=== PATIENT | female | born 1945 | race Asian ===

== ENCOUNTER 2018-05-19 11:34 | Emergency (ER) | payer OTHER, MEDICARE ==
[2018-05-19 12:17] VITALS: BP 140/75; PULSE 77; TEMP 97.9; BMI 27.3
--- NOTE | 2018-05-19 14:08 | PDOC ---
History of Present Illness - General Chief Complaint: Psychiatric Stated Complaint: EMOTIONAL DISTRESS Time Seen by Provider: 05/19/18 12:40 History Source: Patient Exam Limitations: No Limitations - History of Present Illness Initial Comments: 05/19/18 14:01 22-year-old female presents to ED with complaints of difficulty sleeping last night, mild headache this morning relief with ibuprofen and feeling of fearfulness secondary to recent and ongoing conflict with neighbor. Patient states has a male neighbor its approximate 48 years old who is loud, uses vulgar language and "has an intimidating appearance." Patient states try talking to the patient just recently on Thursday when he became defensive and denying patient's request. Coursing since he states does not and stated the patient is likely having hallucinations. Patient states is chronic pain for anxiety but denies psychiatric history. Patient states went to management in the building who recommended either ignore the neighbor or to record the neighbor so that they may address the issue. Patient currently is not fearful for her life and has not reported this to the police. Patient has other complaints at this time Timing/Duration: getting worse Severity: mild Associated Symptoms: reports: denies symptoms, headaches (resolved) Past History - Travel Traveled outside of the country in the last 30 days: No - Past Medical History Allergies/Adverse Reactions: Allergies Allergy/AdvReac Type Severity Reaction Status Date / Time No Known Allergies Allergy Verified 05/19/18 12:12 Home Medications: Ambulatory Orders Clonazepam 1 mg PO TID 05/19/18 Levothyroxine [Synthroid -] 75 mcg PO DAILY 05/19/18 COPD: No Thyroid Disease: Yes - Immunization History Immunization Up to Date: Yes - Suicide/Smoking/Psychosocial Hx Smoking History: Never smoked Hx Alcohol Use: No Drug/Substance Use Hx: No Patient Lives Alone: Yes Lives with/in: lives alone Review of Systems - Review of Systems Able to Perform ROS?: No Constitutional: No: Symptoms Reported HEENTM: No: Symptoms Reported Respiratory: No: Symptoms reported Cardiac (ROS): No: Symptoms Reported ABD/GI: No: Symptoms Reported : No: Symptoms Reported Musculoskeletal: No: Symptoms Reported Neurological: Yes: Headache Psychiatric: Yes: Anxiety, Stressors, Sleep Pattern Change Endocrine: No: Symptoms Reported Hematologic/Lymphatic: No: Symptoms Reported *Physical Exam - Vital Signs Last Vital Signs Temp Pulse Resp BP Pulse Ox 97.9 F 77 18 140/75 96 05/19/18 12:13 05/19/18 12:13 05/19/18 12:13 05/19/18 12:13 05/19/18 12:13 - Physical Exam General Appearance: Yes: Nourished, Appropriately Dressed. No: Apparent Distress HEENT: positive: EOMI, IRVING. negative: Pale Conjunctivae Neck: positive: Normal Thyroid, Supple Extremity: positive: Normal Inspection, Normal Range of Motion Integumentary: positive: Normal Color, Warm, Moist Neurologic: positive: Normal Mood/Affect (calm, + eye contact), Motor Strength 5 /5 (ambulatory) Medical Decision Making - Medical Decision Making 05/19/18 14:05 Patient will complaints of insomnia and anxiety secondary to a neighbor who she has resided nex to for the past 4 years. Patient states it confronted him to past week when he became argumentative and defensive. Patient went to management who recommended either to ignore the neighbor or to record the neighbor so that they may address the loud aggressive and vulgar behavior. She has no other complaints this time. I also recommended patient go to the nearest precinct to be advised of other solutions for the problem. *DC/Admit/Observation/Transfer Diagnosis at time of Disposition: Anxiety - Discharge Dispostion Disposition: HOME Condition at time of disposition: Good - Referrals - Patient Instructions Printed Discharge Instructions: DI for Anxiety -- Adult Additional Instructions: Please consider going to the nearest precinct for other solutions and advice. Understand if any given time if you do not feel safe or fearful for your life, to call 911. Otherwise also consider recording the neighbor and then notifying management - Post Discharge Activity
== END 2018-05-19 14:15 | disposition home or self-care (01) ==
LOC: JER 11:34
DX: F41.9 Anxiety disorder, unspecified (principal); E07.9 Disorder of thyroid, unspecified
CPT/HCPCS: 99281-25

== ENCOUNTER 2018-07-23 05:01 | Day surgery (SDC) | payer OTHER, MEDICARE ==
[2018-07-22 15:34] VITALS: BMI 27.1
[2018-07-23] MEDS ORDERED: PROPOFOL 20 ML ONE ×2 (11:54)
[2018-07-23] MEDS ORDERED: LIDOCAINE HCL/PF 2% SDV 5ML VIAL ONE (11:54)
[2018-07-23] MEDS ORDERED: ceFAZolin SODIUM 1 GM VIAL ONE (11:54)
[2018-07-23] MEDS ORDERED: MIDAZOLAM HCL 2 MG/2 ML SINGLE DOSE VIAL ONE (11:54)
[2018-07-23] MEDS ORDERED: LIDOCAINE HCL 1%, 10 MG/ML (50 mL VIAL) IJ ONE ×2 (12:20)
[2018-07-23] MEDS ORDERED: KETOROLAC TROMETHAMINE 30 MG/1 ML VIAL ONE (13:00)
--- NOTE | 2018-07-23 13:13 | HP ---
Admitting History and Physical - Primary Care Physician PCP: Augie Cobos ([employer]) - Admission Chief Complaint: Right bunion with hallux valgus History of Present Illness: Condition prevents patient from wearing shoe gear and has requested surgery - Smoking History Smoking history: Never smoked Have you smoked in the past 12 months: No - Alcohol/Substance Use Hx Alcohol Use: Yes (1 beer with lunch every day) Home Medications - Allergies Allergies/Adverse Reactions: Allergies Allergy/AdvReac Type Severity Reaction Status Date / Time No Known Allergies Allergy Verified 07/23/18 09:33 - Home Medications Home Medications: Ambulatory Orders Clonazepam 1 mg PO TID 05/19/18 Cholecalciferol (Vitamin D3) [Vitamin D3 -] 1,000 unit PO DAILY 07/22/18 Levothyroxine [Synthroid -] 88 mcg PO DAILY 07/22/18 Lovastatin 20 mg PO DAILY 07/22/18 Olmesartan Medoxomil [Benicar (Nf)] 40 mg PO DAILY 07/22/18 Physical Examination Vital Signs: Vital Signs Temperature 98.2 F 07/23/18 09:22 Pulse Rate 85 07/23/18 09:22 Respiratory Rate 16 07/23/18 09:22 Blood Pressure 136/80 07/23/18 09:22 O2 Sat by Pulse Oximetry (%) 98 07/23/18 09:22 Musculoskeletal: Yes: Other (Right foot 35 degress abduction of hallux with large bunion) Assessment/Plan Assessment Right bunion with hallux valgus. Plan I originally planned to perform right Lara, but in holding the patient requested that I not remove her joint, so we decided to do modified Borrego type operation instead.
[2018-07-23 14:38] VITALS: PULSE 83
[2018-07-23] MEDS ORDERED: IBUPROFEN 800 MG/8 ML IJ IVPB PRN (15:18)
[2018-07-23] MEDS ORDERED: ONDANSETRON 4 MG/2 ML VIAL IVPUSH PRN (15:18)
[2018-07-23] MEDS ORDERED: oxyCODONE HCL 5 MG TABLET PO PRN (15:18)
[2018-07-23 15:25] VITALS: BP 125/70; TEMP 98.3
[2018-07-23] MEDS ORDERED: LACTATED RINGERS SOLUTION 1,000 ML IV SCH (15:30)
--- NOTE | 2018-07-24 07:55 | OP ---
DATE OF OPERATION: 07/23/2018 SURGEON: Augie Cobos DPM PREOPERATIVE DIAGNOSIS: Right bunion with hallux valgus. POSTOPERATIVE DIAGNOSIS: Right bunion with hallux valgus. PROCEDURE: Right modified Borrego simple bunionectomy. DESCRIPTION OF PROCEDURE: Under fractional anesthesia and a surgical scrub with Betadine scrub and solution x2, the patient was draped using sterile technique. After 3 minutes of right limb elevation, a right ankle tourniquet was inflated to 250 mmHg pressure for 43 minutes. Inspection of the right foot showed a 35-degree hallux valgus with a very large medial eminence on the 1st metatarsal head. Using a No. 15 surgical blade, a linear longitudinal incision was made on the dorsal aspect of the right foot over the 1st metatarsophalangeal joint. The incision was deepened through fascia and retracted. The 1st interspace was bluntly dissected, and the adductor tendinous attachments were dissected from the fibular sesamoid and the lateral joint capsule. Attention was directed to the dorsal joint capsule of the 1st metatarsophalangeal joint. A linear longitudinal incision was made releasing the medial extensor kilgore ligament, and then, a longitudinal incision was made in the joint capsule. Medial and lateral sesamoidal ligaments were cut, and then, the 1st metatarsal head was delivered into the wound. It was inspected and found to have significant joint cartilaginous damage with fissuring and missing areas of cartilage. However, the patient did not consent to a procedure. So, we will stick with the simple bunionectomy. Using the bone saw, the medial eminence of the 1st metatarsal head and a portion of the medial proximal phalangeal condyle was resected and then rasped smooth. The wound was irrigated copiously with sterile saline, and then, the joint was reapproximated and sutured with 2-0 Vicryl being used for the joint capsule and extensor kilgore apparatus and 3-0 Vicryl being used for fascia closure, and then, 4-0 Vicryl used for subcuticular closure with Steri-Strips. The ankle tourniquet was deflated after 43 minutes of inflation. Vascular perfusion immediately returned to all 5 digits, so, a dry sterile dressing was applied to the right foot. The patient tolerated the surgical procedure well and left the operating room stable, alert, awake, and in no pain. RICKI BILLINGSLEY/[id number]
== END 2018-07-23 15:10 | disposition home or self-care (01) ==
LOC: JASU-SURG 05:01
PROVIDERS: ATTEND Podiatrist Foot Surgery
PROC: 0QBQ0ZZ Excision of Right Toe Phalanx, Open Approach (ICD-10-PCS; principal; 2018-07-23 10:30)
DX: M20.11 Hallux valgus (acquired), right foot (principal); M21.611 Bunion of right foot

== ENCOUNTER 2018-11-26 09:13 | Observation (INO) | payer OTHER, MEDICARE ==
[2018-11-26 09:34] VITALS: BMI 27.9
--- NOTE | 2018-11-26 10:50 | PDOC ---
History of Present Illness - General Chief Complaint: Blood Pressure Problem Stated Complaint: HTN,DIZZINESS Time Seen by Provider: 11/26/18 09:30 - History of Present Illness Initial Comments: 73yo F with PMH of HTN, HLD, hypothyroidism, anxiety complaining of dizziness, headache, shortness of breath, and chest pain. Patient states that she usually takes clonipin everyday for anxiety for over five years since her . She has not taken this medicine for three days since she ran out. Patient has an appointment to see her physician, Dr. Smart, today, but feeling like she was going to pass out prompted her to call 06-22. As patient was in the lobby with EMS, she began to feel chest pressure which she describes it as a 'discomfort' and 'pressure.' It last for about about five minutes and was located on the left side of her chest, non-radiating. No hemoptysis, no recent surgical history, no recent immobilization, no hormone use, no history of DVT or PE. It lasted for Patient is a poor historian. No fevers or chills. Past History - Past Medical History Allergies/Adverse Reactions: Allergies Allergy/AdvReac Type Severity Reaction Status Date / Time No Known Allergies Allergy Verified 07/23/18 09:33 Home Medications: Ambulatory Orders Clonazepam 1 mg PO TID 05/19/18 Cholecalciferol (Vitamin D3) [Vitamin D3 -] 1,000 unit PO DAILY 07/22/18 Levothyroxine [Synthroid -] 88 mcg PO DAILY 07/22/18 Lovastatin 20 mg PO DAILY 07/22/18 Olmesartan Medoxomil [Benicar (Nf)] 40 mg PO DAILY 07/22/18 COPD: No HTN: Yes Hypercholesterolemia: Yes Thyroid Disease: Yes - Immunization History Immunization Up to Date: Yes - Suicide/Smoking/Psychosocial Hx Smoking History: Never smoked Have you smoked in the past 12 months: No Hx Alcohol Use: No Drug/Substance Use Hx: No Substance Use Type: None Hx Substance Use Treatment: No Review of Systems - Review of Systems Comments:: Constitutional: no fever, +diaphoresis HEENT: no throat pain, no dysphagia Cardiovascular: +chest pain, no palpitations Respiratory: no cough, +shortness of breath Gastrointestinal: no abdominal pain, no nausea, no vomiting Genitourinary: no dysuria, no frequency Musculoskeletal: no myalgia, no arthralgia Skin: no rash, no itching Neurologic: +headache, +lightheaded *Physical Exam - Vital Signs Last Vital Signs Temp Pulse Resp BP Pulse Ox 99.1 F 90 20 171/98 H 98 11/26/18 09:31 11/26/18 09:31 11/26/18 09:31 11/26/18 09:31 11/26/18 09:31 - Physical Exam Comments: General: Awake, alert, and fully oriented, in no acute distress Head: No signs of trauma Eyes: EOMI, sclera anicteric ENT: Moist mucus membranes Neck: Normal ROM, supple Lungs: Lungs clear, Normal breath sounds Cardio: Regular rhythm, S1 and S2 present Abdomen: Soft, nontender. No guarding, no rebound, no masses Extremities: Normal range of motion, Distal pulses present SKIN: Warm, Dry, normal turgor Neurologic: Cranial nerves II through XII grossly intact. Normal speech Moderate Sedation - Procedure Monitoring Vital Signs: Procedure Monitoring Vital Signs Temperature 99.1 F 11/26/18 09:31 Pulse Rate 90 11/26/18 09:31 Respiratory Rate 20 11/26/18 09:31 Blood Pressure 171/98 H 11/26/18 09:31 O2 Sat by Pulse Oximetry (%) 98 11/26/18 09:31 ED Treatment Course - LABORATORY CBC & Chemistry Diagram: 11/26/18 10:40 11/26/18 10:40 - RADIOLOGY Radiology Studies Ordered: Category Date Time Status CHEST X-RAY PORTABLE* [RAD] Stat Radiology 11/26/18 10:30 Ordered Medical Decision Making - Medical Decision Making 73yo F with PMH of HTN, HLD, hypothyroidism, anxiety complaining of dizziness, headache, shortness of breath, and chest pain. DDX includes but not limited to ACS, hypertensive emergency vs urgency, PE, arrhythmia, pneumonia Vitals notable for hypertension in systolic 170s. Patient says she took her blood pressure medicine this morning. No PE risk factors, low suspicion for PE While presentation is consistent with benzodiazepene withdrawal, patient's chest pain concerning for ACS vs. hypertensive emergency History also shows a pre-syncopal picture. Patient feels better after receiving home does of clonipin. EKG: rate 85, QTc 430. Sinus rhythm with short IA, no ST d/e CXR without acute pathology First Tpn negative. Discussed case with Dr. Smart who accepted patient for telemetry observation. 11/26/18 13:09 *DC/Admit/Observation/Transfer Diagnosis at time of Disposition: Chest pain, Pre-syncope, Anxiety - Discharge Dispostion Condition at time of disposition: Guarded Decision to Admit order: Yes - Referrals - Patient Instructions - Post Discharge Activity
[2018-11-26 11:07] LABS: BASO % 0.2 % (0-2.0); HEMATOCRIT 36.9 % (32.4-45.2); HEMOGLOBIN 12.8 GM/dL (10.7-15.3); LYMPH % 28.9 % (8-40); MCH 31.2 pg (25.7-33.7); MCHC 34.7 g/dl (32.0-36.0); MEAN CELL VOLUME 89.7 fl (80-96); MEAN PLT VOLUME 9.2 fl (7.5-11.1); MONO % 7.1 % (3.8-10.2); NEUT % 63.8 % (42.8-82.8); PLATELET COUNT 218 K/MM3 (134-434); RBC 4.11 M/mm3 (3.60-5.2); RDW 13.6 % (11.6-15.6); WHITE BLOOD COUNT 6.9 K/mm3 (4.0-10.0)
[2018-11-26] MEDS ORDERED: clonazePAM 0.5 MG TABLET PO ONE (11:22)
[2018-11-26] MEDS ORDERED: clonazePAM 0.5 MG TABLET ONE (11:27)
[2018-11-26 11:48] LABS: ALBUMIN 3.7 g/dl (3.4-5.0); ALK PHOS 77 U/L (45-117); ANION GAP 7 MMOL/L (8-16); BILIRUBIN,TOTAL 0.6 mg/dL (0.2-1); BLOOD UREA NITROGEN 15 mg/dL (7-18); CALCIUM 9.2 mg/dL (8.5-10.1); CHLORIDE 106 mmol/L (98-107); CO2 25 mmol/L (21-32); GLUCOSE,RANDOM 106 mg/dL (74-106); POTASSIUM 4.3 mmol/L (3.5-5.1); SGOT/AST 23 U/L (15-37); SGPT/ALT 18 U/L (13-61); SODIUM 139 mmol/L (136-145); TOT PROT 7.5 g/dl (6.4-8.2)
--- NOTE | 2018-11-26 12:20 | PDOC ---
Attending Attestation - HPI HPI: 11/26/18 12:56 The patient is a 73 year old female, with a significant past medical history of HTN, HLD, hypothyroidism, and anxiety who presents to the emergency department via EMS complaining of dizziness, headache, shortness of breath, and chest pain. The patient notes she is on clonipin for her anxiety but has not taken them for the past 3 days because she ran out. The patient states she has an appointment with Dr. Smart, today but she felt like passing out, which prompted her arrival to the ED. Patient notes taking aspirin, with relief. Patient notes once she arrived to the ED, she felt non-radiating chest pressure that lasted for about five minutes. The patient denies fever, chills, nausea, vomit, diarrhea and constipation. The patient denies dysuria, frequency, urgency and hematuria. Allergies: NKDA Past surgical history: None reported Social history: None reported <Og Sim - Last Filed: 11/26/18 14:15> - Resident Resident Name: Roslyn Vaughn - ED Attending Attestation I have performed the following: I have examined & evaluated the patient, The case was reviewed & discussed with the resident, I agree w/resident's findings & plan, Exceptions are as noted - Physicial Exam PE: 11/26/18 13:51 awake alert lungs clear bilaterally heart rrr no mrg abd soft nt nd. ext wwp no edema. no calf tenderness. skin warm and dry. 2 + dp/ pt pulses. nuero alert oriented x 3. - Medical Decision Making 11/26/18 13:53 differential 11/26/18 14:05 73 yo F with h/o HTN anxiety on klonopin here today c/o feeling lightheaded, with associated cp ad sob. pt states off her klonopin for 3 days, this am suddently felt lightheaded had chest tightness, did have sob. also felt dizzy. no palpitations. took asa and called ambulance. after arrival to ed pain has resolved. no f/c no runny nose. no cough. has not been sleeping recently. no leg swelling. pt did see a oven loader 6 mo ago , unsure of name, did echo and dopplers legs were reportedly negative. mom with ME in her 80's. not a smoker. no other complaints. normal exam. no edema. no calf tenderes. normal cardiac and lung exam. differential withdrawal from benzos, dysrhtymia, acs, infeciton chf. plan labs ekg cxr. lakeisha give klonopin here. asa. pt will require admission due to age, and risk factors for acs r/o. initial labs unremarkable. <Lisy Otoole - Last Filed: 11/26/18 16:50> Heart Score/ECG Review #1 General ECG Interpretation: Sinus Rhythm, Normal Rate (85), Normal Intervals, No acute ischemic changes <Lisy Otoole - Last Filed: 11/26/18 16:50> Attestations - Attestations 11/26/18 12:57 Documentation prepared by Og Sim, acting as biomedical engineering aide for Lisy Otoole MD, MD <Og Sim - Last Filed: 11/26/18 14:15>
--- NOTE | 2018-11-26 12:46 | EKG ---
Test Reason : Blood Pressure : / mmHG Vent. Rate : 085 BPM Atrial Rate : 085 BPM P-R Int : 106 ms QRS Dur : 080 ms QT Int : 362 ms P-R-T Axes : 060 020 037 degrees QTc Int : 430 ms SINUS RHYTHM WITH SHORT NV OTHERWISE NORMAL ECG NO PREVIOUS ECGS AVAILABLE Confirmed by EDUARDO BRUNSON, DELMER ([id number]) on 11/26/2018 12:45:55 PM Referred By: Confirmed By:DELMER CLARK MD
--- NOTE | 2018-11-26 20:40 | PN ---
Progress Note, Physician - Current Medication List Current Medications: Active Medications Atorvastatin Calcium (Lipitor -) 10 mg PO HS CINDY Cholecalciferol (Vitamin D3 -) 1,000 unit PO DAILY CINDY Clonazepam (Klonopin -) 1 mg PO TID CINDY Levothyroxine Sodium (Synthroid -) 88 mcg PO ACBK CINDY Losartan Potassium (Cozaar -) 25 mg PO DAILY CINDY - Objective Vital Signs: Vital Signs Temperature 98.2 F 11/26/18 18:00 Pulse Rate 85 11/26/18 18:00 Respiratory Rate 18 11/26/18 18:00 Blood Pressure 169/99 11/26/18 18:00 O2 Sat by Pulse Oximetry (%) 95 11/26/18 17:17 Labs: CBC, BMP 11/26/18 10:40 11/26/18 10:40
[2018-11-26] MEDS: ATORVASTATIN CA 10 MG TABLET (FP) PO SCH (21:06)
[2018-11-26] MEDS: clonazePAM 0.5 MG TABLET PO SCH (21:06)
[2018-11-26] MEDS ORDERED: PATIENT'S OWN MEDICATION (NON-FORMULARY) (Clonazepam [Clonazepam] 1 MG) PO SCH (22:00)
--- NOTE | 2018-11-26 23:45 | HP ---
Admitting History and Physical - Primary Care Physician PCP: Keegan Smart - Admission Chief Complaint: CP. SOB. Lightheadedness History of Present Illness: Pt woke up this AM with chest pressure, SOB and lightheadedness. Pt started to fell anxious, as was alone, and call 911. Pt's CP resolvedwhile in ambulance. Pt w/o new episode since. History Source: Patient Limitations to Obtaining History: No Limitations - Past Medical History Cardiovascular: Yes: HTN, Hyperlipdemia Psych: Yes: Anxiety - Smoking History Smoking history: Never smoked Have you smoked in the past 12 months: No - Alcohol/Substance Use Hx Alcohol Use: No Home Medications - Allergies Allergies/Adverse Reactions: Allergies Allergy/AdvReac Type Severity Reaction Status Date / Time No Known Allergies Allergy Verified 07/23/18 09:33 - Home Medications Home Medications: Ambulatory Orders Clonazepam 1 mg PO TID 05/19/18 Cholecalciferol (Vitamin D3) [Vitamin D3 -] 1,000 unit PO DAILY 07/22/18 Levothyroxine [Synthroid -] 88 mcg PO DAILY 07/22/18 Lovastatin 20 mg PO DAILY 07/22/18 Olmesartan Medoxomil [Benicar (Nf)] 40 mg PO DAILY 07/22/18 Review of Systems - Review of Systems Constitutional: denies: Chills, Fever Eyes: denies: Blurred Vision, Double Vision HENT: denies: Ear Discharge, Ear Pain, Nasal Congestion, Throat Pain Neck: denies: Pain on Movement, Stiffness Cardiovascular: denies: Chest Pain (now), Palpitations Respiratory: denies: Cough, SOB on Exertion, Wheezing Gastrointestinal: denies: Abdominal Pain, Constipation, Diarrhea, Vomiting Genitourinary: denies: Burning, Flank Pain Musculoskeletal: denies: Back Pain, Muscle Pain Neurological: reports: Change in LOC, Change in Speech Endocrine: denies: Excessive Sweating, Intolerance to Cold Hematology/Lymphatic: denies: Easily Bruised, Excessive Bleeding Psychiatric: denies: Altered Sleep Pattern, Anxiety Physical Examination Vital Signs: Vital Signs Temperature 98.1 F 11/26/18 20:38 Pulse Rate 80 11/26/18 20:38 Respiratory Rate 16 11/26/18 20:38 Blood Pressure 156/89 11/26/18 20:38 O2 Sat by Pulse Oximetry (%) 95 11/26/18 17:17 Constitutional: Yes: No Distress, Calm Eyes: Yes: Conjunctiva Clear, EOM Intact HENT: Yes: Normocephalic. No: Hoarseness, Pharyngeal Erythema Neck: Yes: Trachea Midline. No: Lymphadenopathy Cardiovascular: Yes: Regular Rate and Rhythm, Murmur (1/6), S1, S2 Respiratory: Yes: Regular, CTA Bilaterally. No: Rales Gastrointestinal: Yes: Normal Bowel Sounds, Soft. No: Tenderness ...Rectal Exam: Yes: Deferred Renal/: No: CVA Tenderness - Left, CVA Tenderness - Right Breast(s): Yes: Other (deferred) Musculoskeletal: No: Joint Stiffness, Joint Swelling Extremities: No: Cold, Cool Edema: No Neurological: Yes: Alert, Oriented Labs: CBC, BMP 11/26/18 10:40 11/26/18 10:40 Imaging - Results Chest X-ray: Report Reviewed Problem List - Problems (1) Chest pain Code(s): R07.9 - CHEST PAIN, UNSPECIFIED (2) HLD (hyperlipidemia) Code(s): E78.5 - HYPERLIPIDEMIA, UNSPECIFIED (3) Anxiety Code(s): F41.9 - ANXIETY DISORDER, UNSPECIFIED Assessment/Plan Monitor HR on Telemety Serial CE Cardio consult AM labs
[2018-11-27] MEDS: LEVOTHYROXINE NA 88 MCG TABLET (FP) PO SCH (06:24)
[2018-11-27] MEDS: clonazePAM 0.5 MG TABLET PO SCH ×3 (06:24→21:17)
[2018-11-27 07:32] LABS: ANION GAP 6 MMOL/L (8-16); BLOOD UREA NITROGEN 22 mg/dL (7-18); CALCIUM 8.6 mg/dL (8.5-10.1); CHLORIDE 108 mmol/L (98-107); CO2 27 mmol/L (21-32); CREATININE 0.9 mg/dL (0.55-1.3); GLUCOSE,RANDOM 98 mg/dL (74-106); POTASSIUM 4.3 mmol/L (3.5-5.1); SODIUM 141 mmol/L (136-145)
--- NOTE | 2018-11-27 08:54 | CON.CARD ---
Consult Consult Specialty:: Cardiology Referred by:: Dr. Smart - History of Present Illness Chief Complaint: chest pressure History of Present Illness: 73F HL, HTN, hypothyroid presents for episode of dizziness and associated chest pressure. Mild associated dyspnea. Mild headache, now resolved Denies palpitations, edema, PND, orthopnea, syncope. Denies prior cardiac hx. Has not experienced recent anginal sx. Denies associated focal neuro deficits. - History Source History Provided By: Patient, Medical Record - Past Medical History Cardio/Vascular: Yes: HTN, Hyperlipdemia Pulmonary: No: Asthma, Bronchitis, Cancer, COPD, O2 Dependent, Pneumonia, Previously Intubated, Pulmonary Embolus, Pulmonary Fibrosis, Sleep Apnea, Other Gastrointestinal: No: Ascites, Cancer, Constipation, Crohn's Disease, Diverticulitis, Diverticulosis, Esophageal Varices, Gastritis, GERD, GI Bleed, Hemorrhoids, Hiatal Hernia, Inflamatory Bowel Disease, Irritable Bowel Disease, Pancreatitis, Peptic Ulcer Disease, Ulcerative Colitis, Other Psych: Yes: Anxiety Endocrine: Yes: Hypothyroidism - Alcohol/Substance Use Hx Alcohol Use: No - Smoking History Smoking history: Never smoked Have you smoked in the past 12 months: No - Social History Usual Living Arrangement: With Child ADL: Independent Place of : Other ([facility]) History of Recent Travel: No Home Medications - Allergies Allergies/Adverse Reactions: Allergies Allergy/AdvReac Type Severity Reaction Status Date / Time No Known Allergies Allergy Verified 07/23/18 09:33 - Home Medications Home Medications: Ambulatory Orders Clonazepam 1 mg PO TID 05/19/18 Cholecalciferol (Vitamin D3) [Vitamin D3 -] 1,000 unit PO DAILY 07/22/18 Levothyroxine [Synthroid -] 88 mcg PO DAILY 07/22/18 Lovastatin 20 mg PO DAILY 07/22/18 Olmesartan Medoxomil [Benicar (Nf)] 40 mg PO DAILY 07/22/18 Family Disease History - Family Disease History Family History: Unremarkable (No early CAD or SCD) Review of Systems Findings/Remarks: see HPI and ER records - Review of Systems Constitutional: reports: No Symptoms Eyes: reports: No Symptoms HENT: reports: No Symptoms Cardiovascular: reports: Chest Pain, Shortness of Breath Respiratory: denies: No Symptoms, Cough, Exercise Intolerance, Hemoptysis, Orthopnea, PND, Snoring, SOB, SOB on Exertion, Wheezing, Other Gastrointestinal: denies: No Symptoms, Abdominal Pain, Bloating, Constipation, Diarrhea, Dysphagia, Indigestion, Melena, Nausea, Rectal Bleeding, Vomiting, Vomiting Blood, Other Genitourinary: denies: No Symptoms, Burning, Discharge, Dysuria, Flank Pain, Frequency, Hematuria, Incontinence, Lesions, Menses, Pain, Testicular Mass, Testicular Pain, Testicular Swelling, Urgency, Vaginal Bleeding, Other Breasts: denies: No Symptoms Reported, See HPI, Breast Implants, Discharge from Nipple, Lumps, Pain, Skin Changes, Other Musculoskeletal: denies: No Symptoms, Back Pain, Crepitus, Decreased ROM, Extremity Pain, Joint Pain, Joint Swelling, Muscle Pain, Muscle Cramps, Muscle Weakness, Other Neurological: reports: Dizziness Endocrine: denies: No Symptoms, Excessive Sweating, Flushing, Increased Hunger, Increased Thirst, Intolerance to Cold, Intolerance to Heat, Unexplained Weight Gain, Unexplained Weight Loss, Other Hematology/Lymphatic: denies: No Symptoms, Easily Bruised, Excessive Bleeding, Swollen Glands, Other - Risk Factors Known Risk Factors: Yes: Hypercholesterolemia, Hypertension Vital Signs: Vital Signs Temperature 98.1 F 11/27/18 06:00 Pulse Rate 81 11/27/18 06:00 Respiratory Rate 16 11/27/18 06:00 Blood Pressure 156/78 11/27/18 06:00 O2 Sat by Pulse Oximetry (%) 95 11/27/18 01:17 Constitutional: Yes: No Distress, Calm Eyes: Yes: Conjunctiva Clear, EOM Intact HENT: Yes: Atraumatic, Normocephalic Neck: Yes: Supple, Trachea Midline Respiratory: Yes: Regular, CTA Bilaterally Gastrointestinal: Yes: Soft Cardiovascular: Yes: Regular Rate and Rhythm JVD: No Carotid Bruit: No PMI: Non-Displaced Heart Sounds: Yes: S1, S2 (RRR, no M/R/G) Edema: No Peripheral Pulses WNL: Yes Integumentary: Yes: WNL Neurological: Yes: Alert Psychiatric: Yes: WNL - Other Data Labs, Other Data: CBC, BMP 11/26/18 10:40 11/27/18 05:15 Troponin, BNP 11/26/18 11/26/18 10:40 19:10 Troponin I < 0.02 < 0.02 Troponin, BNP 11/26/18 11/26/18 10:40 19:10 Troponin I < 0.02 < 0.02 NSR AK short. TELE: Short run NSVT Echo: Pending Imaging - Results Chest X-ray: Report Reviewed, Image Reviewed EKG: Image Reviewed Problem List - Problems (1) Chest pain Code(s): R07.9 - CHEST PAIN, UNSPECIFIED (2) Dizziness Code(s): R42 - DIZZINESS AND GIDDINESS (3) HTN (hypertension) Code(s): I10 - ESSENTIAL (PRIMARY) HYPERTENSION Qualifiers: Hypertension type: essential hypertension Qualified Code(s): I10 - Essential (primary) hypertension (4) Hyperlipidemia Code(s): E78.5 - HYPERLIPIDEMIA, UNSPECIFIED Qualifiers: Hyperlipidemia type: unspecified Qualified Code(s): E78.5 - Hyperlipidemia , unspecified (5) NSVT (nonsustained ventricular tachycardia) Code(s): I47.2 - VENTRICULAR TACHYCARDIA Assessment/Plan IMP: Dizziness, chest pressure in a patient with several cardiac risk factors Ischemia and sustained arrhythmias to be ruled out. REC: 1. Tele: short episode NSVT ( 3 beats). Keep K+ and Mg2+ normalized. Cont Telemetry 2. Echo for EF assessment 3. Plan for stress MPI Thursday 4. ASA 81mg daily Will follow.
[2018-11-27 09:39] LABS: MAGNESIUM 2.1 mg/dL (1.8-2.4)
[2018-11-27] MEDS: ASPIRIN 81 MG CHEWABLE TABLETS PO SCH (10:58)
[2018-11-27] MEDS: CHOLECALCIFEROL (VITAMIN D3) 1,000 UNIT TABLET (FP) PO SCH (10:58)
[2018-11-27] MEDS: LOSARTAN POTASSIUM 50 MG TABLET (FP) PO SCH (10:58)
--- NOTE | 2018-11-27 14:30 | PN ---
Progress Note, Physician History of Present Illness: Ptw/o CP, palpitations, SOB, abd pain, anxiety. Pt still with episodes of Lightheadedness. - Current Medication List Current Medications: Active Medications Aspirin (Asa -) 81 mg PO DAILY [facility] Last Admin: 11/27/18 10:58 Dose: 81 mg Atorvastatin Calcium (Lipitor -) 10 mg PO HS [facility] Last Admin: 11/26/18 21:06 Dose: Not Given Cholecalciferol (Vitamin D3 -) 1,000 unit PO DAILY [facility] Last Admin: 11/27/18 10:58 Dose: 1,000 unit Clonazepam (Klonopin -) 1 mg PO TID [facility] Last Admin: 11/27/18 06:24 Dose: Not Given Levothyroxine Sodium (Synthroid -) 88 mcg PO ACBK [facility] Last Admin: 11/27/18 06:24 Dose: 88 mcg Losartan Potassium (Cozaar -) 25 mg PO DAILY [facility] Last Admin: 11/27/18 10:58 Dose: 25 mg - Objective Vital Signs: Vital Signs Temperature 98.1 F 11/27/18 06:00 Pulse Rate 81 11/27/18 06:00 Respiratory Rate 16 11/27/18 06:00 Blood Pressure 156/78 11/27/18 06:00 O2 Sat by Pulse Oximetry (%) 95 11/27/18 01:17 Constitutional: Yes: No Distress, Calm Cardiovascular: Yes: Regular Rate and Rhythm, S1, S2 Respiratory: Yes: Regular, CTA Bilaterally. No: Rales Gastrointestinal: Yes: Normal Bowel Sounds, Soft. No: Tenderness Edema: No Neurological: Yes: Alert, Oriented Labs: CBC, BMP 11/26/18 10:40 11/27/18 05:15 Problem List - Problems (1) Chest pain Code(s): R07.9 - CHEST PAIN, UNSPECIFIED (2) HLD (hyperlipidemia) Code(s): E78.5 - HYPERLIPIDEMIA, UNSPECIFIED (3) Anxiety Code(s): F41.9 - ANXIETY DISORDER, UNSPECIFIED Assessment/Plan Monitor HR on Telemety Serial CE are negative Cardio consult is appreciated; pt to have further evalaution AM labs Case was d/w pt's nurse.
[2018-11-27] MEDS: ATORVASTATIN CA 10 MG TABLET (FP) PO SCH (21:18)
[2018-11-28] MEDS: clonazePAM 0.5 MG TABLET PO SCH ×3 (05:48→21:40)
[2018-11-28] MEDS: LEVOTHYROXINE NA 88 MCG TABLET (FP) PO SCH (06:11)
--- NOTE | 2018-11-28 08:40 | PN ---
Progress Note, Physician Chief Complaint: in bed NAD no c/o BP better controlled; no CP/SOB awaiting stress test - Current Medication List Current Medications: Active Medications Aspirin (Asa -) 81 mg PO DAILY [facility] Last Admin: 11/27/18 10:58 Dose: 81 mg Atorvastatin Calcium (Lipitor -) 10 mg PO HS [facility] Last Admin: 11/27/18 21:18 Dose: 10 mg Cholecalciferol (Vitamin D3 -) 1,000 unit PO DAILY [facility] Last Admin: 11/27/18 10:58 Dose: 1,000 unit Clonazepam (Klonopin -) 1 mg PO TID [facility] Last Admin: 11/28/18 05:48 Dose: 1 mg Levothyroxine Sodium (Synthroid -) 88 mcg PO ACBK [facility] Last Admin: 11/28/18 06:11 Dose: 88 mcg Losartan Potassium (Cozaar -) 25 mg PO DAILY [facility] Last Admin: 11/27/18 10:58 Dose: 25 mg - Objective Vital Signs: Vital Signs Temperature 97.8 F 11/28/18 05:00 Pulse Rate 73 11/28/18 05:00 Respiratory Rate 18 11/28/18 05:00 Blood Pressure 130/61 11/28/18 05:00 O2 Sat by Pulse Oximetry (%) 95 11/28/18 01:00 Constitutional: Yes: No Distress, Calm Eyes: Yes: Conjunctiva Clear HENT: Yes: Atraumatic Neck: Yes: Supple Cardiovascular: Yes: Regular Rate and Rhythm Respiratory: Yes: CTA Bilaterally Gastrointestinal: Yes: Soft. No: Tenderness Genitourinary: No: CVA Tenderness - Left, CVA Tenderness - Right Musculoskeletal: No: Joint Stiffness, Joint Swelling Extremities: No: Cold, Cool, Cyanosis Edema: No Integumentary: No: Rash, Venous Stasis Changes Neurological: Yes: WNL, Alert, Oriented ...Motor Strength: WNL Psychiatric: Yes: WNL, Alert, Oriented. No: Agitated, Suicidal Ideation Labs: CBC, BMP 11/26/18 10:40 - ....Imaging Other: Report Reviewed Assessment/Plan 73yo F with PMH of HTN, HLD, hypothyroidism, anxiety complaining of dizziness, headache, shortness of breath, and chest pain."Bad anxiety" on halfway clonopine. Admitted with CP and uncontrolled HTN seen by cardiology; CE negative; BP meds adjusted, BP better controlled now for stress test in am per cardiology d/w pt and staff falls DVT pfx as ordered
[2018-11-28 09:12] LABS: ANION GAP 7 MMOL/L (8-16); BLOOD UREA NITROGEN 21 mg/dL (7-18); CHLORIDE 103 mmol/L (98-107); CO2 28 mmol/L (21-32); CREATININE 0.8 mg/dL (0.55-1.3); GLUCOSE,RANDOM 105 mg/dL (74-106); MAGNESIUM 2.3 mg/dL (1.8-2.4); POTASSIUM 3.9 mmol/L (3.5-5.1); SODIUM 138 mmol/L (136-145)
[2018-11-28] MEDS: LOSARTAN POTASSIUM 50 MG TABLET (FP) PO SCH (09:24)
[2018-11-28] MEDS: CHOLECALCIFEROL (VITAMIN D3) 1,000 UNIT TABLET (FP) PO SCH (09:24)
[2018-11-28] MEDS: ASPIRIN 81 MG CHEWABLE TABLETS PO SCH (09:24)
--- NOTE | 2018-11-28 09:27 | PN ---
Progress Note, Physician Chief Complaint: no further chest pain TELE : NSR PVCs - Current Medication List Current Medications: Active Medications Aspirin (Asa -) 81 mg PO DAILY [facility] Last Admin: 11/28/18 09:24 Dose: 81 mg Atorvastatin Calcium (Lipitor -) 10 mg PO HS [facility] Last Admin: 11/27/18 21:18 Dose: 10 mg Cholecalciferol (Vitamin D3 -) 1,000 unit PO DAILY [facility] Last Admin: 11/28/18 09:24 Dose: 1,000 unit Clonazepam (Klonopin -) 1 mg PO TID [facility] Last Admin: 11/28/18 05:48 Dose: 1 mg Levothyroxine Sodium (Synthroid -) 88 mcg PO ACBK [facility] Last Admin: 11/28/18 06:11 Dose: 88 mcg Losartan Potassium (Cozaar -) 25 mg PO DAILY [facility] Last Admin: 11/28/18 09:24 Dose: 25 mg - Objective Vital Signs: Vital Signs Temperature 97.8 F 11/28/18 05:00 Pulse Rate 73 11/28/18 05:00 Respiratory Rate 18 11/28/18 05:00 Blood Pressure 130/61 11/28/18 05:00 O2 Sat by Pulse Oximetry (%) 95 11/28/18 01:00 Constitutional: Yes: No Distress Cardiovascular: Yes: Regular Rate and Rhythm Respiratory: Yes: CTA Bilaterally Gastrointestinal: Yes: Soft Edema: No Neurological: Yes: Alert, Oriented Labs: CBC, BMP 11/26/18 10:40 11/28/18 07:50 - ....Imaging EKG: Image Reviewed Problem List - Problems (1) Chest pain Code(s): R07.9 - CHEST PAIN, UNSPECIFIED (2) Dizziness Code(s): R42 - DIZZINESS AND GIDDINESS (3) HTN (hypertension) Code(s): I10 - ESSENTIAL (PRIMARY) HYPERTENSION Qualifiers: Hypertension type: essential hypertension Qualified Code(s): I10 - Essential (primary) hypertension (4) Hyperlipidemia Code(s): E78.5 - HYPERLIPIDEMIA, UNSPECIFIED Qualifiers: Hyperlipidemia type: unspecified Qualified Code(s): E78.5 - Hyperlipidemia , unspecified (5) NSVT (nonsustained ventricular tachycardia) Code(s): I47.2 - VENTRICULAR TACHYCARDIA Assessment/Plan MP: Dizziness, chest pressure in a patient with several cardiac risk factors Ischemia and sustained arrhythmias to be ruled out. REC: 1. Tele: short episode NSVT ( 3 beats). Keep K+ and Mg2+ normalized. Cont Telemetry 2. Echo for EF assessment 3. Plan for stress MPI Thursday 4. ASA 81mg daily Will follow. Coverage for [facility]
[2018-11-28] MEDS: HEPARIN NA (PORCINE) 5,000 UNITS/ML 1ML VIAL SQ SCH ×2 (13:22→21:40)
[2018-11-28] MEDS: ATORVASTATIN CA 10 MG TABLET (FP) PO SCH (21:40)
[2018-11-29] MEDS: clonazePAM 0.5 MG TABLET PO SCH ×4 (05:27→21:15)
[2018-11-29] MEDS: LEVOTHYROXINE NA 88 MCG TABLET (FP) PO SCH (06:14)
[2018-11-29] MEDS: ASPIRIN 81 MG CHEWABLE TABLETS PO SCH (09:07)
[2018-11-29] MEDS: LOSARTAN POTASSIUM 50 MG TABLET (FP) PO SCH (09:07)
[2018-11-29] MEDS: CHOLECALCIFEROL (VITAMIN D3) 1,000 UNIT TABLET (FP) PO SCH (09:08)
[2018-11-29] MEDS: HEPARIN NA (PORCINE) 5,000 UNITS/ML 1ML VIAL SQ SCH ×2 (09:08→21:15)
[2018-11-29] MEDS ORDERED: REGADENOSON 0.4 MG/5 ML PRE-FILLED SYRINGE IVPUSH ONE ×2 (09:54→11:45)
--- NOTE | 2018-11-29 11:43 | DS ---
Physical Examination Vital Signs: Vital Signs Temperature 98.2 F 11/29/18 09:12 Pulse Rate 77 11/29/18 09:12 Respiratory Rate 18 11/29/18 09:12 Blood Pressure 137/76 11/29/18 09:12 O2 Sat by Pulse Oximetry (%) 98 11/29/18 09:00 Findings/Remarks: in bed NAD no CP awaiting stress test and echo if WNL can go home and fu with cardiology pt asked for klonopine prn for anxiety; [employer] checked; advised f/u PCP and psychiatry for anxiety outpt; ordered 90 tabs prn use also cardio f/u outpt Constitutional: Yes: No Distress, Calm Eyes: Yes: Conjunctiva Clear HENT: Yes: Atraumatic Neck: Yes: Supple Cardiovascular: Yes: Regular Rate and Rhythm Respiratory: Yes: CTA Bilaterally Gastrointestinal: Yes: Soft. No: Tenderness Renal/: No: CVA Tenderness - Left, CVA Tenderness - Right Musculoskeletal: No: Joint Stiffness, Joint Swelling Extremities: No: Cold, Cool, Cyanosis Edema: No Integumentary: No: Rash, Venous Stasis Changes Neurological: Yes: WNL, Alert, Oriented ...Motor Strength: WNL Psychiatric: Yes: WNL, Alert, Oriented. No: Agitated, Suicidal Ideation Labs: CBC, BMP 11/26/18 10:40 11/28/18 07:50 Discharge Summary Reason For Visit: HYPERTENSIVE URGENCY/PRE-SYNCOPE/CHEST PAIN Current Active Problems Anxiety (Acute) Anxiety (Acute) Chest pain (Acute) Chest pain (Acute) Dizziness (Acute) HLD (hyperlipidemia) (Acute) HTN (hypertension) (Acute) Hyperlipidemia (Acute) NSVT (nonsustained ventricular tachycardia) (Acute) Pre-syncope (Acute) Procedures: Principal: admitted with CP/palpitations and uncontrolled HTN Other Procedures: seen by cardiology; echo and stress test WNL;. BP meds adjusted for BP control Hospital Course: improved with above; f/u outpt Condition: Improved - Instructions Diet, Activity, Other Instructions: f/u with PCP and cardiology in 1-2 weeks of DC RTER if worse or recurrent c/o Referrals: Keegan Smart MD [Staff Physician] - Hai Good MD [Staff Physician] - Disposition: HOME - Home Medications Comprehensive Discharge Medication List: Ambulatory Orders Clonazepam 1 mg PO TID 05/19/18 Cholecalciferol (Vitamin D3) [Vitamin D3 -] 1,000 unit PO DAILY 07/22/18 Levothyroxine [Synthroid -] 88 mcg PO DAILY 07/22/18 Lovastatin 20 mg PO DAILY 07/22/18 Olmesartan Medoxomil [Benicar (Nf)] 40 mg PO DAILY 07/22/18
--- NOTE | 2018-11-29 12:21 | ECHO ---
Name: ARYA SÁNCHEZ Exam:Adult Echocardiogram Study Date: 11/29/2018 11:37 AM Age: 73 yrs Reason For Study: Chest pain Height: 61 in Weight: 148 lb BSA: 1.7 m2 MMode/2D Measurements & Calculations IVSd: 0.71 cm Ao root diam: 2.2 cm LVIDd: 3.0 cm LA dimension: 3.3 cm LVIDs: 2.2 cm LVPWd: 0.67 cm EDV(Teich): 36.4 ml TAPSE: 2.1 cm ESV(Teich): 16.3 ml Doppler Measurements & Calculations MV E max nuvia: 41.5 cm/sec Ao V2 max: 119.5 cm/sec MV A max nuvia: 73.5 cm/sec Ao max P.7 mmHg MV E/A: 0.56 MV dec time: 0.23 sec LV V1 max P.3 mmHg TR max nuvia: 210.2 cm/sec LV V1 max: 115.4 cm/sec TR max P.7 mmHg Med Peak E' Nuvia: 4.2 cm/sec Med E/e': 9.9 Lat Peak E' Nuvia: 7.2 cm/sec Lat E/e': 5.7 Procedure A complete two-dimensional transthoracic echocardiogram was performed (2D, M-mode, Doppler and color flow Doppler). Left Ventricle The left ventricle is normal in size. Left ventricular systolic function is normal. Ejection Fraction = 55- 60%. Grade I diastolic dysfunction, (abnormal relaxation pattern). Ratio E/E'= 10. No regional wall m otion abnormalities noted. Right Ventricle The right ventricle is normal size. The right ventricular systolic function is normal. RV systolic TD I is 11 cm/s. Atria The left atrial size is normal. Right atrial size is normal. Mitral Valve There is mild mitral annular calcification. There is no mitral regurgitation noted. Tricuspid Valve The tricuspid valve is normal in structure and function. There is mild tricuspid regurgitation. Right ventricular systolic pressure is normal. Aortic Valve The aortic valve is normal in structure and function. No aortic regurgitation is present. Pulmonic Valve The pulmonic valve is not well visualized. Mild pulmonic valvular regurgitation. Great Vessels The aortic root is normal size. Pericardium/Pleura There is no pericardial effusion. Interpretation Summary The left ventricle is normal in size. Left ventricular systolic function is normal. No regional wall motion abnormalities noted. Ejection Fraction = 55-60%. Grade I diastolic dysfunction, (abnormal relaxation pattern). Ratio E/E'= 10 The right ventricular systolic function is normal. The left atrial size is normal. Right atrial size is normal. There is mild mitral annular calcification. There is mild tricuspid regurgitation. Right ventricular systolic pressure is normal. Mild pulmonic valvular regurgitation. There is no pericardial effusion. Previous study is not available for comparison Alex Lu MD 11/29/2018 12:19 PM
--- NOTE | 2018-11-29 15:28 | PN ---
Progress Note, Physician Chief Complaint: Cardiology for Dr. Good History of Present Illness: No further chest pain or dizziness. - Current Medication List Current Medications: Active Medications Aspirin (Asa -) 81 mg PO DAILY [facility] Last Admin: 11/29/18 09:07 Dose: 81 mg Atorvastatin Calcium (Lipitor -) 10 mg PO HS [facility] Last Admin: 11/28/18 21:40 Dose: 10 mg Cholecalciferol (Vitamin D3 -) 1,000 unit PO DAILY [facility] Last Admin: 11/29/18 09:08 Dose: 1,000 unit Clonazepam (Klonopin -) 1 mg PO TID [facility] Last Admin: 11/29/18 09:08 Dose: 1 mg Heparin Sodium (Porcine) (Heparin -) 5,000 unit SQ BID [facility] Last Admin: 11/29/18 09:08 Dose: 5,000 unit Levothyroxine Sodium (Synthroid -) 88 mcg PO ACBK [facility] Last Admin: 11/29/18 06:14 Dose: Not Given Losartan Potassium (Cozaar -) 25 mg PO DAILY [facility] Last Admin: 11/29/18 09:07 Dose: 25 mg - Objective Vital Signs: Vital Signs Temperature 98.2 F 11/29/18 09:12 Pulse Rate 77 11/29/18 09:12 Respiratory Rate 18 11/29/18 09:12 Blood Pressure 137/76 11/29/18 09:12 O2 Sat by Pulse Oximetry (%) 98 11/29/18 09:00 Constitutional: Yes: No Distress, Calm Neck: Yes: Supple Cardiovascular: Yes: Regular Rate and Rhythm Respiratory: Yes: Regular, Diminished Gastrointestinal: Yes: Normal Bowel Sounds, Soft Edema: No Labs: CBC, BMP 11/26/18 10:40 11/28/18 07:50 Problem List - Problems (1) Chest pain Code(s): R07.9 - CHEST PAIN, UNSPECIFIED Qualifiers: Chest pain type: other chest pain Qualified Code(s): R07.89 - Other chest pain; R07.8 - Other chest pain (2) Dizziness Code(s): R42 - DIZZINESS AND GIDDINESS (3) HLD (hyperlipidemia) Code(s): E78.5 - HYPERLIPIDEMIA, UNSPECIFIED Qualifiers: Hyperlipidemia type: pure hypercholesterolemia Qualified Code(s): E78.00 - Pure hypercholesterolemia, unspecified; E78.0 - Pure hypercholesterolemia (4) HTN (hypertension) Code(s): I10 - ESSENTIAL (PRIMARY) HYPERTENSION Qualifiers: Hypertension type: essential hypertension Qualified Code(s): I10 - Essential (primary) hypertension (5) NSVT (nonsustained ventricular tachycardia) Code(s): I47.2 - VENTRICULAR TACHYCARDIA Assessment/Plan 1. Dizziness, chest pressure in a patient with several cardiac risk factors 2. Ischemia and sustained arrhythmias to be ruled out. 3, Hyperlipidemia 4. Hypothyroidism 5. HTN/HCVD REC: 1. Echo for EF assessment 2. Plan for stress MPI Thursday 3. Continue ASA 81mg daily, Lipitor 10 qhs, losartan 25 qd, DVT prophylaxis Coverage for [facility]
[2018-11-29] MEDS: ATORVASTATIN CA 10 MG TABLET (FP) PO SCH (21:15)
[2018-11-30] MEDS: clonazePAM 0.5 MG TABLET PO SCH (05:21)
[2018-11-30] MEDS: LEVOTHYROXINE NA 88 MCG TABLET (FP) PO SCH (06:25)
--- NOTE | 2018-11-30 08:11 | PN ---
Progress Note, Physician Chief Complaint: in bed awake alert NAD VSS no c/o ready to go home (her son was NA to pick her up last night) d/w pt f/u needed - Current Medication List Current Medications: Active Medications Aspirin (Asa -) 81 mg PO DAILY [facility] Last Admin: 11/29/18 09:07 Dose: 81 mg Atorvastatin Calcium (Lipitor -) 10 mg PO HS [facility] Last Admin: 11/29/18 21:15 Dose: 10 mg Cholecalciferol (Vitamin D3 -) 1,000 unit PO DAILY [facility] Last Admin: 11/29/18 09:08 Dose: 1,000 unit Clonazepam (Klonopin -) 1 mg PO TID [facility] Last Admin: 11/30/18 05:21 Dose: 1 mg Heparin Sodium (Porcine) (Heparin -) 5,000 unit SQ BID [facility] Last Admin: 11/29/18 21:15 Dose: 5,000 unit Levothyroxine Sodium (Synthroid -) 88 mcg PO ACBK [facility] Last Admin: 11/30/18 06:25 Dose: 88 mcg Losartan Potassium (Cozaar -) 25 mg PO DAILY [facility] Last Admin: 11/29/18 09:07 Dose: 25 mg - Objective Vital Signs: Vital Signs Temperature 97.7 F 11/30/18 06:00 Pulse Rate 76 11/30/18 06:00 Respiratory Rate 18 11/30/18 06:00 Blood Pressure 142/68 11/30/18 06:00 O2 Sat by Pulse Oximetry (%) 98 11/29/18 21:00 Constitutional: Yes: No Distress, Calm Eyes: Yes: Conjunctiva Clear HENT: Yes: Atraumatic Neck: Yes: Supple Cardiovascular: Yes: Regular Rate and Rhythm Respiratory: Yes: CTA Bilaterally Gastrointestinal: Yes: Soft. No: Tenderness Genitourinary: No: CVA Tenderness - Left, CVA Tenderness - Right, Hematuria Musculoskeletal: No: Joint Stiffness, Joint Swelling Extremities: No: Cold, Cool, Cyanosis Edema: No Integumentary: No: Rash, Venous Stasis Changes Neurological: Yes: WNL, Alert, Oriented ...Motor Strength: WNL Psychiatric: Yes: WNL, Alert, Oriented. No: Agitated, Suicidal Ideation Labs: CBC, BMP 11/26/18 10:40 11/28/18 07:50 - ....Imaging Other: Report Reviewed Assessment/Plan 73yo F with PMH of HTN, HLD, hypothyroidism, anxiety complaining of dizziness, headache, shortness of breath, and chest pain."Bad anxiety" on local [employer] clonopine. Admitted with CP and uncontrolled HTN seen by cardiology; CE negative; BP meds adjusted, BP better controlled now negative stress test OK to DC home f/u as advised klonopine ordered prn f.u with outpt psychiatry for anxiety advised d/w pt and staff falls DVT pfx as ordered
--- NOTE | 2018-11-30 09:39 | PN ---
Progress Note, Physician History of Present Illness: 73yo F with PMH of HTN, HLD, hypothyroidism, anxiety complaining of dizziness, headache, shortness of breath, and chest pain. Patient states that she usually takes clonipin everyday for anxiety for over five years since her . She has not taken this medicine for three days since she ran out. Patient has an appointment to see her physician, Dr. Smart, today, but feeling like she was going to pass out prompted her to call 06-22. As patient was in the lobby with EMS, she began to feel chest pressure which she describes it as a 'discomfort' and 'pressure.' It last for about about five minutes and was located on the left side of her chest, non-radiating. No hemoptysis, no recent surgical history, no recent immobilization, no hormone use, no history of DVT or PE. It lasted for Patient is a poor historian. No fevers or chills. - Current Medication List Current Medications: Active Medications Aspirin (Asa -) 81 mg PO DAILY [facility] Last Admin: 11/29/18 09:07 Dose: 81 mg Atorvastatin Calcium (Lipitor -) 10 mg PO HS [facility] Last Admin: 11/29/18 21:15 Dose: 10 mg Cholecalciferol (Vitamin D3 -) 1,000 unit PO DAILY [facility] Last Admin: 11/29/18 09:08 Dose: 1,000 unit Clonazepam (Klonopin -) 1 mg PO TID [facility] Last Admin: 11/30/18 05:21 Dose: 1 mg Heparin Sodium (Porcine) (Heparin -) 5,000 unit SQ BID [facility] Last Admin: 11/29/18 21:15 Dose: 5,000 unit Levothyroxine Sodium (Synthroid -) 88 mcg PO ACBK [facility] Last Admin: 11/30/18 06:25 Dose: 88 mcg Losartan Potassium (Cozaar -) 25 mg PO DAILY [facility] Last Admin: 11/29/18 09:07 Dose: 25 mg - Objective Vital Signs: Vital Signs Temperature 97.7 F 11/30/18 06:00 Pulse Rate 76 11/30/18 06:00 Respiratory Rate 18 11/30/18 06:00 Blood Pressure 142/68 11/30/18 06:00 O2 Sat by Pulse Oximetry (%) 98 11/29/18 21:00 Labs: CBC, BMP 11/26/18 10:40 11/28/18 07:50 Problem List - Problems (1) Atypical chest pain Assessment/Plan: TNI < 0.02 x 3 Stress MIBI: no ischemia. From a cardiac standpoint, pt may be followed as outpatient. Code(s): R07.89 - OTHER CHEST PAIN (2) Anxiety Code(s): F41.9 - ANXIETY DISORDER, UNSPECIFIED (3) HLD (hyperlipidemia) Assessment/Plan: f/u lipid profile Presently on atorvastatin. Code(s): E78.5 - HYPERLIPIDEMIA, UNSPECIFIED Qualifiers: Hyperlipidemia type: pure hypercholesterolemia Qualified Code(s): E78.00 - Pure hypercholesterolemia, unspecified; E78.0 - Pure hypercholesterolemia (4) HTN (hypertension) Code(s): I10 - ESSENTIAL (PRIMARY) HYPERTENSION Qualifiers: Hypertension type: essential hypertension Qualified Code(s): I10 - Essential (primary) hypertension
[2018-11-30] MEDS: HEPARIN NA (PORCINE) 5,000 UNITS/ML 1ML VIAL SQ SCH (10:06)
[2018-11-30] MEDS: LOSARTAN POTASSIUM 50 MG TABLET (FP) PO SCH (10:06)
[2018-11-30] MEDS: ASPIRIN 81 MG CHEWABLE TABLETS PO SCH (10:06)
[2018-11-30] MEDS: CHOLECALCIFEROL (VITAMIN D3) 1,000 UNIT TABLET (FP) PO SCH (10:06)
[2018-11-30 11:08] LABS: CHOLESTEROL 162 mg/dL (50-200); HDL CHOLESTEROL 47 mg/dL (40-60); TRIGLYCERIDES 147 mg/dL (0-150)
[2018-11-30 11:22] VITALS: BP 141/72; PULSE 84; TEMP 98
== END 2018-11-30 11:26 | disposition home or self-care (01) ==
LOC: JER 09:13 → JERBED 12:09 → J4S 14:31
PROVIDERS: ADMIT Specialist; ATTEND Specialist
PROC: 3E033GC Introduction of Other Therapeutic Substance into Peripheral Vein, Percutaneous Approach (ICD-10-PCS; principal; 2018-11-26)
PROC: 3E013GC Introduction of Other Therapeutic Substance into Subcutaneous Tissue, Percutaneous Approach (ICD-10-PCS; 2018-11-26)
DX: R07.9 Chest pain, unspecified (principal); I47.2 Ventricular tachycardia; R55 Syncope and collapse; F41.9 Anxiety disorder, unspecified; I10 Essential (primary) hypertension; E78.5 Hyperlipidemia, unspecified; E03.9 Hypothyroidism, unspecified; R42 Dizziness and giddiness
CPT/HCPCS: 36415; 71045-TC-FY; 78452-TC; 80048; 80053; 80061; 82550; 83721; 83735; 84439; 84443; 84484; 85025; 93005; 93010; 93017; 93306-TC; 96372; 96374; 99285-25; A9502; G0378; J1644; J2785

== ENCOUNTER 2019-02-04 12:34 | Inpatient (IN) | payer OTHER, MEDICARE ==
--- NOTE | 2019-02-04 12:43 | PDOC ---
History of Present Illness - General Chief Complaint: Altered Mental Status Stated Complaint: OVERDOSE Time Seen by Provider: 02/04/19 12:42 - History of Present Illness Initial Comments: 02/04/19 13:52 The patient is a 73 year old female with a history of HTN, HLD, Hypothyroid who presents for evaluation of AMS. The patient is accompanied by family who assist in providing the history. The patient's son reports that he left for the store and returned 1 hour later to find the patient extremely altered prompting her presentation to the ED for further evaluation. The patient's last known normal was 10am this morning and per the patient's son was in her usual state of health. The patient is oriented x1 on exam and ROS is unobtainable due to her altered mental status. tPA Exclusion Checklist 0-3hr - Time Elapsed Date last known well: 02/04/19 Time last known well: 10:00 Elaspsed time: Day(s) and 5 Hour(s) and 21 Minutes - Thrombolytic Therapy Candidate Is the patient eligible for Thrombolytic Therapy?: No - Relative Exclusion Criteria 0-3h Stroke severity too mild: Yes - Ineligibility reason(s) Reasons No tPA given: See reason(s) noted above NIH Stroke Scale - Last Known Well Date/Time & Onset Date Last Known Well: 02/04/19 Time Last Known Well: 10:00 - Initial Evaluation Level of consciousness: Alert Ask patient the month and their age: Both incorrect Ask patient to open & close eyes; make fist and let go: Obeys both correctly Best gaze (horizontal eye movement): Normal Visual field testing: No visual field loss Facial paresis (Show teeth/raise eyebrows/close eyes tight): Normal symmetrical movement Motor Function: Left Arm: Normal Motor Function: Right Arm: Drift Motor Function: Left Leg: Normal (extends leg 30 degrees for 5 seconds without drift) Motor Function: Right Leg: Normal (extends leg 30 degrees for 5 seconds without drift) Limb Ataxia: No ataxia Sensory(Use pinprick test arms,legs,trunk,face/side to side): Normal Best language (Describe picture, name items, read sentences): Mild to moderate aphasia Dysarthria (read several words): Normal articulation Extinction and Inattention: No abnormality - Total Score NIH Stroke Scale Score: 4 Past History - Past Medical History Allergies/Adverse Reactions: Allergies Allergy/AdvReac Type Severity Reaction Status Date / Time No Known Allergies Allergy Verified 02/04/19 12:56 Home Medications: Ambulatory Orders Clonazepam 1 mg PO TID 05/19/18 Cholecalciferol (Vitamin D3) [Vitamin D3 -] 1,000 unit PO DAILY 07/22/18 Levothyroxine [Synthroid -] 88 mcg PO DAILY 07/22/18 Lovastatin 20 mg PO DAILY 07/22/18 Olmesartan Medoxomil [Benicar -] 40 mg PO DAILY 07/22/18 Aspirin [ASA -] 81 mg PO DAILY tab.chew 11/29/18 Anemia: No Asthma: No Cancer: No Cardiac Disorders: No CVA: No COPD: No CHF: No Dementia: No Diabetes: No GI Disorders: No Disorders: No HTN: Yes Hypercholesterolemia: Yes Liver Disease: No Seizures: No Thyroid Disease: Yes - Surgical History Abdominal Surgery: No Appendectomy: No Cardiac Surgery: No Cholecystectomy: No Lung Surgery: No Neurologic Surgery: No Orthopedic Surgery: No - Immunization History Immunization Up to Date: Yes - Suicide/Smoking/Psychosocial Hx Smoking History: Never smoked Have you smoked in the past 12 months: No Hx Alcohol Use: No Drug/Substance Use Hx: No Substance Use Type: None Hx Substance Use Treatment: No Review of Systems - Review of Systems Able to Perform ROS?: No (AMS) *Physical Exam - Physical Exam Comments: 02/04/19 13:57 General Appearance: Nourished. No Apparent Distress HEENT: EOMI, IRVING. No Pharyngeal Erythema, Tonsillar Exudate, Tonsillar Erythema Neck: No Cervical Lymphadenopathy Respiratory/Chest: Lungs Clear, Normal Breath Sounds. No Crackles, Rales, Rhonchi, Wheezing Cardiovascular: Regular Rhythm, Regular Rate. No Murmur, Gallops, Rubs Gastrointestinal/Abdominal: Normal Bowel Sounds, Soft. 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 Motor Strength 4/5 in the left arm. Following commands. Inappropriate responses. Right gaze preference but does cross the midline Heart Score/ECG Review #1 ECG reviewed & interpreted by me at: 14:00 02/04/19 14:00 Sinus Rhythm with short MI No Acute ST Changes HR 93 MI 110 QRS 84 QTc 469 ED Treatment Course - LABORATORY CBC & Chemistry Diagram: 02/04/19 13:30 02/04/19 13:30 - RADIOLOGY Radiology Studies Ordered: Category Date Time Status HEAD CT (STROKE) [CT] Stat CT Scan 02/04/19 12:42 Ordered CHEST X-RAY PORTABLE* [RAD] Stat Radiology 02/04/19 12:43 Ordered Medical Decision Making - Medical Decision Making 02/04/19 14:01 The patient is a 73 year old female with a history of HTN, HLD, Hypothyroid who presents for evaluation of AMS. Differential includes but is not limited to: CVA, TIA, ACS, Seizure, UTI, Infectious, Metabolic Derangement. Given the patient's history and physical exam, the patient was initially called as a code estrada. Head CT was negative for acute findings as read by our radiologist. We discussed the case with Dr. Figueroa with neurology who agrees with holding off on medical treatment at this time and opting for further work up for the patient's altered mental status with MRI and lab work up. We will obtain a cbc, cmp, coags, troponin, ua, urine culture, lipid profile, chest plain film to evaluate further. We will continue to monitor and reassess while here in the ED. The patient will likely require admission for further monitoring and management. 02/04/19 15:21 CBC, cmp, coags troponin are unremarkable. Chest plain film has no acute findings. UA is still pending. We discussed the case with Dr. Smart with the admitting team who accepted the patient for admission. *DC/Admit/Observation/Transfer Diagnosis at time of Disposition: TIA (transient ischemic attack) Altered mental status, unspecified Qualifiers: Altered mental status type: unspecified Qualified Code(s): R41.82 - Altered mental status, unspecified - Discharge Dispostion Condition at time of disposition: Stable Decision to Admit order: Yes - Referrals - Patient Instructions - Post Discharge Activity
[2019-02-04 13:28] VITALS: BMI 28.3
[2019-02-04] MEDS: SODIUM CHLORIDE 1,000 ML IV SCH (13:31)
[2019-02-04 13:39] LABS: BASO % 0.2 % (0-2.0); HEMATOCRIT 41.1 % (32.4-45.2); HEMOGLOBIN 13.6 GM/dL (10.7-15.3); LYMPH % 10.3 % (8-40); MCHC 33.1 g/dl (32.0-36.0); MEAN CELL VOLUME 90.6 fl (80-96); MONO % 3.8 % (3.8-10.2); NEUT % 85.7 % (42.8-82.8); PLATELET COUNT 215 K/MM3 (134-434); RBC 4.54 M/mm3 (3.60-5.2); RDW 13.3 % (11.6-15.6); WHITE BLOOD COUNT 6.6 K/mm3 (4.0-10.0)
[2019-02-04 14:02] LABS: INR 1.08 (0.83-1.09); PROTHROMBIN TIME (PATIENT) 12.7 SEC (9.7-13.0)
[2019-02-04 14:26] LABS: ALBUMIN 4.2 g/dl (3.4-5.0); ALK PHOS 74 U/L (45-117); ANION GAP 12 MMOL/L (8-16); BILIRUBIN,TOTAL 1.2 mg/dL (0.2-1); BLOOD UREA NITROGEN 10 mg/dL (7-18); CALCIUM 9.8 mg/dL (8.5-10.1); CHLORIDE 106 mmol/L (98-107); CHOLESTEROL 156 mg/dL (50-200); CO2 23 mmol/L (21-32); CREATININE 1.2 mg/dL (0.55-1.3); GLUCOSE,RANDOM 182 mg/dL (74-106); HDL CHOLESTEROL 53 mg/dL (40-60); POTASSIUM 3.7 mmol/L (3.5-5.1); SGOT/AST 29 U/L (15-37); SGPT/ALT 20 U/L (13-61); SODIUM 141 mmol/L (136-145); TOT PROT 7.7 g/dl (6.4-8.2); TRIGLYCERIDES 94 mg/dL (0-150)
--- NOTE | 2019-02-04 14:31 | PDOC ---
Documentation entered by Arlette Raza SCRIBE, acting as scribe for Roslyn Beasley MD. Roslyn Beasley MD: This documentation has been prepared by the Ry lau Amanda, SCRIBE, under my direction and personally reviewed by me in its entirety. I confirm that the documentation accurately reflects all work, treatment, procedures, and medical decision making performed by me. Attending Attestation - Resident Resident Name: Carmelo Mosher - ED Attending Attestation I have performed the following: I have examined & evaluated the patient, The case was reviewed & discussed with the resident, I agree w/resident's findings & plan, Exceptions are as noted - HPI HPI: 02/04/19 14:13 The patient is a 73 year old female with a significant past medical history of HTN, HLD, Hypothyroid who presents to the ED for evaluation of altered mental status. The patient is accompanied by family who assist in providing the history. The patient's son reports that he left for the store with the patient at baseline mentation and returned about 1 hour later to find the patient confused prompting her presentation to the ED for further evaluation. - Physicial Exam PE: GENERAL: Awake, alert, and fully oriented, in no acute distress HEAD: No signs of trauma EYES: PERRLA, EOMI, sclera anicteric, conjunctiva clear ENT: Auricles normal inspection, hearing grossly normal, nares patent, oropharynx clear without exudates. Moist mucosa NECK: Normal ROM, supple, no lymphadenopathy, JVD, or masses LUNGS: Breath sounds equal, clear to auscultation bilaterally. No wheezes, and no crackles HEART: Regular rate and rhythm, normal S1 and S2, no murmurs, rubs or gallops ABDOMEN: Soft, nontender, normoactive bowel sounds. No guarding, no rebound. No masses EXTREMITIES: Normal range of motion, no edema. No clubbing or cyanosis. No cords, erythema, or tenderness NEUROLOGICAL: Cranial nerves II through XII grossly intact. Speech is fluent, but answers to questions are inappropriate at times. Motor and sensation intact. initially with R-garcia gaze preference, however, subsequently she looks to the L SKIN: Warm, Dry, normal turgor, no rashes or lesions noted. - Medical Decision Making Pt with AMS as per family report this is not her baseline. Code tavares called. Will plan for admission. NIH Stroke Scale - Last Known Well Date/Time & Onset Date Last Known Well: 02/04/19 Time Last Known Well: 10:00 - Initial Evaluation Level of consciousness: Alert Ask patient the month and their age: Both incorrect Ask patient to open & close eyes; make fist and let go: Obeys both correctly Best gaze (horizontal eye movement): Normal Visual field testing: No visual field loss Facial paresis (Show teeth/raise eyebrows/close eyes tight): Normal symmetrical movement Motor Function: Left Arm: Normal Motor Function: Right Arm: Drift Motor Function: Left Leg: Normal (extends leg 30 degrees for 5 seconds without drift) Motor Function: Right Leg: Normal (extends leg 30 degrees for 5 seconds without drift) Limb Ataxia: No ataxia Sensory(Use pinprick test arms,legs,trunk,face/side to side): Normal Best language (Describe picture, name items, read sentences): Mild to moderate aphasia Dysarthria (read several words): Normal articulation Extinction and Inattention: No abnormality - Total Score NIH Stroke Scale Score: 4
[2019-02-04 17:17] LABS: URINE APPEARANCE CLEAR; URINE BACTERIA 0.8 /hpf (NEGATIVE); URINE BILIRUBIN NEGATIVE (NEGATIVE); URINE CASTS 15 /lpf (0-8); URINE COLOR YELLOW; URINE GLUCOSE (UA) NEGATIVE (NEGATIVE); URINE KETONE 1+ (NEGATIVE); URINE LEUK ESTERASE NEGATIVE (NEGATIVE); URINE NITRITE NEGATIVE (NEGATIVE); URINE PROTEIN NEGATIVE (NEGATIVE); URINE RBC 19 /hpf (0-4); URINE WBC 2 /hpf (0-5)
--- NOTE | 2019-02-04 19:33 | CON.NEURO ---
Consult Consult Specialty:: NEUROLOGY-JASPER BRUNSON - History of Present Illness History of Present Illness: The patient is a 73 year old female with a history of HTN, HLD, Hypothyroid who presents for evaluation of AMS. The patient is accompanied by family who assist in providing the history. The patient's son reports that he left for the store and returned 1 hour later to find the patient extremely altered prompting her presentation to the ED for further evaluation. The patient's last known normal was 10am this morning and per the patient's son was in her usual state of health. The patient is oriented x1 on exam and ROS is unobtainable due to her altered mental status. As per her son she was at her baseline until 2 days ago when she could not operate her phone and has become progressively encephalopathic, this am had LOC with drooling and tonic contraction of arms, has decreased right shoulder ROM due to shoulder pain. Unable to relate hx coherently. - Past Medical History Cardio/Vascular: Yes: HTN, Hyperlipdemia Psych: Yes: Anxiety Endocrine: Yes: Hypothyroidism - Alcohol/Substance Use Hx Alcohol Use: No - Smoking History Smoking history: Never smoked Have you smoked in the past 12 months: No - Social History Usual Living Arrangement: With Child ADL: Independent History of Recent Travel: No Home Medications - Allergies Allergies/Adverse Reactions: Allergies Allergy/AdvReac Type Severity Reaction Status Date / Time No Known Allergies Allergy Verified 02/04/19 12:56 - Home Medications Home Medications: Ambulatory Orders Clonazepam 1 mg PO DAILY 02/04/19 Escitalopram Oxalate [Lexapro -] 5 mg PO DAILY 02/04/19 Risperidone [Risperdal -] 0.5 mg PO DAILY 02/04/19 Physical Exam-Neuro Vital Signs: Vital Signs Temperature 97.4 F L 02/04/19 14:13 Pulse Rate 91 H 02/04/19 14:13 Respiratory Rate 16 02/04/19 14:13 Blood Pressure 147/96 02/04/19 14:13 O2 Sat by Pulse Oximetry (%) 100 02/04/19 12:52 Labs: CBC, BMP 02/04/19 13:30 02/04/19 13:30 INR, PTT INR 1.08 (0.83-1.09) 02/04/19 13:30 - Neuro Exam Level Of Consciousness: Yes: Alert (not oriented to self/place only) Eyes: Yes: PERRL, Left Hemianopsis (to threat) Speech: Other (Pt. appears to have tangential thoughts) Mini Mental Exam: Impaired attention/concentration/memory+tangential thoughts, impaired concentration. Follows 1 step commands. Cranial Nerves II-XII Intact: No (slightly diminished left NLF) DTR's: 1+ Left Tricep, 1+ Right Tricep, 1+ Left Brachioradialis, 1+ Right Brachioradialis, 1+ Left Achilles, 1+ Right Achilles, 2+ Left Bicep, 2+ Right Bicep Babinski: Absent Response to light touch: Normal Response to pain prick: Normal Motor Strength: 3/5: Right Arm (ROM limited sec. to shoulder pain), 5/5: Left Arm, Left Leg, Right Leg Gait: Deferred Imaging - Results Cat Scan: Report Reviewed (CT head reported without acute changes) Assessment/Plan Pt. is encephalopathic, exam reveals altered MS, slight left cent. facial deficit and ?/left field cut, she had a sz. this am. DDX includes stroke, sz. due to withdrawl(she may have overdosed on her meds(Klonopin/Risperdal/ Escitalopram). she has a hx. of HLD/HTN. Suggest: MRI brain Klonopin 0.5mg bid ESR/CRP Look for sources of infection. Will follow. Thank you, Alexandro Figueroa MD
--- NOTE | 2019-02-04 20:03 | HP ---
Admitting History and Physical - Primary Care Physician PCP: Keegan Smart - Admission Chief Complaint: Seisure. AMS History of Present Illness: Per patient's son (who was out for about an hour, in AM for shopping) his mother started to become rigid, slid down (from a small chair) to the floor and became unresponsive. He called 911. In ER pt had brain CT scan (negative for acute events). Pt mental status got better in time since in ER. Pt has a Hx/o anxiety, seeing Dr. Kam for last 2 months; her home anxiety meds are: Clonazepam 1 mg daily, Escitalopram 10 mg daily, Risperdal 1 mg daily. Pt is not able to provide HPI secondary to confusion. History Source: Family Member - Past Medical History Cardiovascular: Yes: HTN, Hyperlipdemia Psych: Yes: Anxiety Endocrine: Yes: Hypothyroidism - Smoking History Smoking history: Never smoked Have you smoked in the past 12 months: No - Alcohol/Substance Use Hx Alcohol Use: No - Social History ADL: Independent History of Recent Travel: No Home Medications - Allergies Allergies/Adverse Reactions: Allergies Allergy/AdvReac Type Severity Reaction Status Date / Time No Known Allergies Allergy Verified 02/04/19 12:56 - Home Medications Home Medications: Ambulatory Orders Clonazepam 1 mg PO DAILY 02/04/19 Escitalopram Oxalate [Lexapro -] 5 mg PO DAILY 02/04/19 Risperidone [Risperdal -] 0.5 mg PO DAILY 02/04/19 Levothyroxine [Synthroid -] 75 mg DAILY 02/05/19 Review of Systems - Review of Systems Constitutional: denies: Chills, Fever Eyes: denies: Blurred Vision, Recent Change in Vision HENT: denies: Difficult Swallowing, Ear Discharge, Ear Pain, Nasal Congestion, Throat Pain Neck: denies: Decreased ROM, Tenderness Cardiovascular: denies: Chest Pain, Edema Respiratory: denies: Cough, SOB Gastrointestinal: denies: Abdominal Pain, Nausea, Vomiting Genitourinary: denies: Burning, Dysuria Musculoskeletal: reports: Joint Pain (right shoulder). denies: Back Pain Neurological: denies: Change in Speech, Incoordination, Numbness Endocrine: denies: Excessive Sweating, Intolerance to Cold Hematology/Lymphatic: denies: Easily Bruised, Excessive Bleeding Psychiatric: denies: Altered Sleep Pattern, Depression Physical Examination Vital Signs: Vital Signs Temperature 97.4 F L 02/04/19 14:13 Pulse Rate 91 H 02/04/19 14:13 Respiratory Rate 16 02/04/19 14:13 Blood Pressure 147/96 02/04/19 14:13 O2 Sat by Pulse Oximetry (%) 100 02/04/19 12:52 Constitutional: Yes: No Distress, Calm, Other (left mouth cornerdrop) Eyes: Yes: Conjunctiva Clear, PERRL HENT: No: Drooling, Epistaxis, Nasal Congestion Neck: No: Trachea Midline, Tenderness Cardiovascular: Yes: Regular Rate and Rhythm, S1, S2 Respiratory: Yes: Regular, CTA Bilaterally Gastrointestinal: Yes: Normal Bowel Sounds, Soft. No: Tenderness ...Rectal Exam: Yes: Deferred Renal/: No: Bladder Distention Breast(s): Yes: Other (deferred) Musculoskeletal: No: Back Pain, Joint Stiffness Extremities: No: Cold, Cool, Cyanosis Edema: No Integumentary: No: Bruising, Rash Neurological: Yes: Alert, Oriented (persons (son, me)), Other (motor and sensory is grosly intact except motor in R hand) Psychiatric: Yes: Alert. No: Agitated Labs: CBC, BMP 02/04/19 13:30 02/04/19 13:30 Imaging - Results Chest X-ray: Report Reviewed Cat Scan: Report Reviewed Problem List - Problems (1) Altered mental status, unspecified Code(s): R41.82 - ALTERED MENTAL STATUS, UNSPECIFIED Qualifiers: Altered mental status type: unspecified Qualified Code(s): R41.82 - Altered mental status, unspecified (2) Seizure Code(s): R56.9 - UNSPECIFIED CONVULSIONS (3) Anxiety Code(s): F41.9 - ANXIETY DISORDER, UNSPECIFIED Assessment/Plan Admit to monitor bed Neuro consult; case was d/w Dr. Figueroa at bedside; he will decide about further meds and testing; for now all meds are on hold. Neurochecks AM labs Case was d/w pt's son ( at bedside), all questions were answered. Pt's nurse is at bedside.
[2019-02-05 07:01] LABS: HEMATOCRIT 34.2 % (32.4-45.2); HEMOGLOBIN 11.6 GM/dL (10.7-15.3); MCH 30.5 pg (25.7-33.7); MCHC 33.9 g/dl (32.0-36.0); MEAN CELL VOLUME 90.1 fl (80-96); MEAN PLT VOLUME 9.2 fl (7.5-11.1); PLATELET COUNT 188 K/MM3 (134-434); RDW 13.1 % (11.6-15.6); WHITE BLOOD COUNT 7.2 K/mm3 (4.0-10.0)
[2019-02-05 07:27] LABS: ALBUMIN 3.3 g/dl (3.4-5.0); ALK PHOS 65 U/L (45-117); ANION GAP 10 MMOL/L (8-16); BILIRUBIN,TOTAL 1.2 mg/dL (0.2-1); BLOOD UREA NITROGEN 12 mg/dL (7-18); CALCIUM 8.9 mg/dL (8.5-10.1); CHLORIDE 107 mmol/L (98-107); CO2 23 mmol/L (21-32); CREATININE 0.8 mg/dL (0.55-1.3); GLUCOSE,RANDOM 100 mg/dL (74-106); POTASSIUM 3.6 mmol/L (3.5-5.1); SGOT/AST 26 U/L (15-37); SGPT/ALT 18 U/L (13-61); SODIUM 140 mmol/L (136-145); TOT PROT 6.8 g/dl (6.4-8.2)
--- NOTE | 2019-02-05 13:15 | PN ---
Progress Note, Physician History of Present Illness: Pt more awake and oriented. Pt w/o fever, chills, SOB, CP, palpitations, abd pain, dysuria. Pt w/o weakness or sensory deficit in the face/ LE/ left UE; pt states that her rright shoulder hurts and is weak for few weeks (? reliable about the time frame ; pt is not sure about the month, date, president) - Current Medication List Current Medications: Active Medications Sodium Chloride (Normal Saline -) 1,000 mls @ 42 mls/hr IV ASDIR CINDY Last Admin: 02/04/19 13:31 Dose: 42 mls/hr - Objective Vital Signs: Vital Signs Temperature 98.9 F 02/05/19 12:46 Pulse Rate 79 02/05/19 12:46 Respiratory Rate 18 02/05/19 12:46 Blood Pressure 157/75 02/05/19 12:46 O2 Sat by Pulse Oximetry (%) 97 02/05/19 12:46 Constitutional: Yes: No Distress, Calm Cardiovascular: Yes: Regular Rate and Rhythm, S1, S2 Respiratory: Yes: Regular, CTA Bilaterally Gastrointestinal: Yes: Normal Bowel Sounds, Soft. No: Tenderness Edema: No Neurological: Yes: Alert, Other (motor and sensory examination is symmetric except motor in right arm( weak, painful with movement).) Labs: CBC, BMP 02/05/19 06:00 02/05/19 06:00 INR, PTT INR 1.08 (0.83-1.09) 02/04/19 13:30 - ....Imaging X-ray: Report Reviewed Problem List - Problems (1) Altered mental status, unspecified Code(s): R41.82 - ALTERED MENTAL STATUS, UNSPECIFIED Qualifiers: Altered mental status type: unspecified Qualified Code(s): R41.82 - Altered mental status, unspecified (2) Seizure Code(s): R56.9 - UNSPECIFIED CONVULSIONS (3) Anxiety Code(s): F41.9 - ANXIETY DISORDER, UNSPECIFIED Assessment/Plan Admit to monitor bed Neuro consult is appreciated Neurochecks Brain MRI is pending AM labs Pt's nurse is at bedside.
--- NOTE | 2019-02-05 15:13 | EKG ---
Test Reason : Blood Pressure : / mmHG Vent. Rate : 093 BPM Atrial Rate : 093 BPM P-R Int : 110 ms QRS Dur : 084 ms QT Int : 378 ms P-R-T Axes : 066 044 037 degrees QTc Int : 469 ms SINUS RHYTHM WITH SHORT OK OTHERWISE NORMAL ECG WHEN COMPARED WITH ECG OF 26-NOV-2018 09:35, NO SIGNIFICANT CHANGE WAS FOUND Confirmed by CHRIS MCHUGH MD ([id number]) on 02/05/2019 3:13:24 PM Referred By: Confirmed By:CHRIS MCHUGH MD
[2019-02-05] MEDS: SODIUM CHLORIDE 1,000 ML IV SCH (16:20)
[2019-02-05] MEDS: clonazePAM 0.5 MG TABLET PO SCH (21:50)
[2019-02-05] MEDS ORDERED: FLUPHENAZINE HCL 2.5 MG/ML IM PRN (23:23)
[2019-02-06 07:55] LABS: HEMATOCRIT 32.4 % (32.4-45.2); HEMOGLOBIN 11.1 GM/dL (10.7-15.3); MCH 30.7 pg (25.7-33.7); MCHC 34.3 g/dl (32.0-36.0); MEAN CELL VOLUME 89.6 fl (80-96); MEAN PLT VOLUME 9.1 fl (7.5-11.1); PLATELET COUNT 159 K/MM3 (134-434); RBC 3.61 M/mm3 (3.60-5.2); RDW 13.1 % (11.6-15.6); WHITE BLOOD COUNT 6.4 K/mm3 (4.0-10.0)
[2019-02-06 09:05] LABS: ALK PHOS 59 U/L (45-117); ANION GAP 10 MMOL/L (8-16); BILIRUBIN,TOTAL 1.3 mg/dL (0.2-1); BLOOD UREA NITROGEN 13 mg/dL (7-18); CALCIUM 8.8 mg/dL (8.5-10.1); CHLORIDE 107 mmol/L (98-107); CO2 24 mmol/L (21-32); CREATININE 0.8 mg/dL (0.55-1.3); GLUCOSE,RANDOM 99 mg/dL (74-106); POTASSIUM 3.3 mmol/L (3.5-5.1); SGOT/AST 22 U/L (15-37); SGPT/ALT 17 U/L (13-61); SODIUM 141 mmol/L (136-145); TOT PROT 6.1 g/dl (6.4-8.2)
[2019-02-06] MEDS: clonazePAM 0.5 MG TABLET PO SCH ×2 (09:53→21:00)
[2019-02-06] MEDS ORDERED: POTASSIUM CHLORIDE TABS 20 MEQ TABLET.ER (FP) PO ONE (12:41)
--- NOTE | 2019-02-06 16:48 | PN ---
Progress Note, Physician History of Present Illness: Pt more awake and oriented today. Pt w/o fever, chills, SOB, CP, palpitations, abd pain, dysuria. - Current Medication List Current Medications: Active Medications Clonazepam (Klonopin -) 0.5 mg PO BID [facility] Last Admin: 02/06/19 09:53 Dose: 0.5 mg Fluphenazine HCl (Prolixin Injection -) 2 mg IM Q8H PRN PRN Reason: AGITATION Sodium Chloride (Normal Saline -) 1,000 mls @ 42 mls/hr IV ASDIR [facility] Last Admin: 02/05/19 16:20 Dose: Not Given - Objective Vital Signs: Vital Signs Temperature 98.5 F 02/06/19 14:00 Pulse Rate 76 02/06/19 14:00 Respiratory Rate 18 02/06/19 12:26 Blood Pressure 153/78 02/06/19 14:00 O2 Sat by Pulse Oximetry (%) 95 02/06/19 09:00 Constitutional: Yes: No Distress, Calm Cardiovascular: Yes: Regular Rate and Rhythm, S1, S2 Respiratory: Yes: Regular, CTA Bilaterally. No: Other Gastrointestinal: Yes: Normal Bowel Sounds, Soft. No: Tenderness Edema: No Neurological: Yes: Alert, Oriented Labs: CBC, BMP 02/06/19 06:30 02/06/19 06:30 INR, PTT INR 1.08 (0.83-1.09) 02/04/19 13:30 Problem List - Problems (1) Altered mental status, unspecified Code(s): R41.82 - ALTERED MENTAL STATUS, UNSPECIFIED Qualifiers: Altered mental status type: unspecified Qualified Code(s): R41.82 - Altered mental status, unspecified (2) Seizure Code(s): R56.9 - UNSPECIFIED CONVULSIONS (3) Anxiety Code(s): F41.9 - ANXIETY DISORDER, UNSPECIFIED (4) Hyponatremia Code(s): E87.1 - HYPO-OSMOLALITY AND HYPONATREMIA Assessment/Plan Admit to monitor bed Neuro consult is appreciated Neurochecks Brain MRI is pending (pt refused it yesterday),. Replete K AM labs Pt's nurse is at bedside.
[2019-02-06] MEDS ORDERED: LOSARTAN POTASSIUM 25 MG TABLET PO ONE (17:03)
[2019-02-06] MEDS: SODIUM CHLORIDE 1,000 ML IV SCH (17:23)
[2019-02-06] MEDS: ACETAMINOPHEN 325 MG TABLET (FP) PO PRN (17:43)
--- NOTE | 2019-02-06 18:31 | PN ---
Progress Note (short form) - Note Progress Note: Pt. condition is improved, she is attentive, is able to carry on a conversation , oriented to place/person/year/season. Agreeing to have MRI. She has not received prn fluphenazine. Has been taking clonazepam DDX.includes delirium, left sided temp.infarct, benzodiazepine intox.and withdrawl.Await MRI brain.
[2019-02-06] MEDS: ATORVASTATIN CA 10 MG TABLET (FP) PO SCH (21:00)
[2019-02-07] MEDS: LEVOTHYROXINE NA 75 MCG TABLET (FP) PO SCH (06:10)
[2019-02-07 07:19] LABS: ANION GAP 6 MMOL/L (8-16); BLOOD UREA NITROGEN 15 mg/dL (7-18); CALCIUM 8.6 mg/dL (8.5-10.1); CHLORIDE 107 mmol/L (98-107); CO2 26 mmol/L (21-32); CREATININE 0.7 mg/dL (0.55-1.3); GLUCOSE,RANDOM 101 mg/dL (74-106); POTASSIUM 3.6 mmol/L (3.5-5.1); SODIUM 139 mmol/L (136-145)
--- NOTE | 2019-02-07 08:34 | CON.ORTH ---
Consult Reason for Consultation:: right shoulder pain - Past Medical History Cardio/Vascular: Yes: HTN, Hyperlipdemia Psych: Yes: Anxiety Endocrine: Yes: Hypothyroidism - Alcohol/Substance Use Hx Alcohol Use: No - Smoking History Smoking history: Never smoked Have you smoked in the past 12 months: No - Social History Usual Living Arrangement: With Child ADL: Independent History of Recent Travel: No Home Medications - Allergies Allergies/Adverse Reactions: Allergies Allergy/AdvReac Type Severity Reaction Status Date / Time No Known Allergies Allergy Verified 02/04/19 12:56 - Home Medications Home Medications: Ambulatory Orders Clonazepam 1 mg PO DAILY 02/04/19 Escitalopram Oxalate [Lexapro -] 5 mg PO DAILY 02/04/19 Risperidone [Risperdal -] 0.5 mg PO DAILY 02/04/19 Levothyroxine [Synthroid -] 75 mg DAILY 02/05/19 Physical Exam for Ortho Vital Signs: Vital Signs Temperature 99.2 F 02/07/19 05:39 Pulse Rate 68 02/07/19 05:39 Respiratory Rate 18 02/07/19 05:39 Blood Pressure 152/80 02/07/19 05:39 O2 Sat by Pulse Oximetry (%) 99 02/06/19 21:00 Labs: CBC, BMP 02/06/19 06:30 02/07/19 05:30 INR, PTT INR 1.08 (0.83-1.09) 02/04/19 13:30 - Upper Extremity Shoulder: Yes: Right, Limited ROM, Pain, Other (minimal ttp, limited active ROM secondary to pain, passive FF 120, Abd 90, ER 30, + neer, + oliveira, +/- empty can, nvi) Imaging - Results X-ray: Report Reviewed, Image Reviewed Assessment/Plan 73 year old female with a history of HTN, HLD, Hypothyroid who presented for evaluation of AMS. The patient is accompanied by family who assist in providing the history. The patient's son reported that he left for the store and returned 1 hour later to find the patient extremely altered prompting her presentation to the ED for further evaluation. She has been c/o pain in the right shoulder since admission. Denies any previous trauma. Denies numbness/ tingling. a/p- right shoulder strain vs ? RCT PT eval ROM exercises pain control ok to d/c from ortho pov once medically stable f/u as outpt d/w Dr. Escalera
[2019-02-07] MEDS: ACETAMINOPHEN 325 MG TABLET (FP) PO PRN ×2 (09:38→20:54)
[2019-02-07] MEDS: LOSARTAN POTASSIUM 25 MG TABLET PO SCH (09:38)
[2019-02-07] MEDS: clonazePAM 0.5 MG TABLET PO SCH ×2 (09:39→21:01)
--- NOTE | 2019-02-07 17:42 | PN ---
Progress Note, Physician History of Present Illness: Pt is alert and oriented today. Pt w/o fever, chills, SOB, CP, palpitations, abd pain, dysuria. Pt just finished the brain MRI - Current Medication List Current Medications: Active Medications Acetaminophen (Tylenol -) 650 mg PO Q6H PRN PRN Reason: PAIN LEVEL 1-5 OR FEVER Last Admin: 02/07/19 09:38 Dose: 650 mg Atorvastatin Calcium (Lipitor -) 10 mg PO HS [facility] Last Admin: 02/06/19 21:00 Dose: 10 mg Clonazepam (Klonopin -) 0.5 mg PO BID [facility] Last Admin: 02/07/19 09:39 Dose: 0.5 mg Fluphenazine HCl (Prolixin Injection -) 2 mg IM Q8H PRN PRN Reason: AGITATION Sodium Chloride (Normal Saline -) 1,000 mls @ 42 mls/hr IV ASDIR [facility] Last Admin: 02/06/19 17:23 Dose: Not Given Levothyroxine Sodium (Synthroid -) 75 mcg PO DAILY@0700 [facility] Last Admin: 02/07/19 06:10 Dose: 75 mcg Losartan Potassium (Cozaar -) 25 mg PO DAILY [facility] Last Admin: 02/07/19 09:38 Dose: 25 mg - Objective Vital Signs: Vital Signs Temperature 98.5 F 02/07/19 14:33 Pulse Rate 72 02/07/19 14:33 Respiratory Rate 20 02/07/19 14:33 Blood Pressure 129/69 02/07/19 14:33 O2 Sat by Pulse Oximetry (%) 99 02/07/19 08:50 Constitutional: Yes: No Distress, Calm Cardiovascular: Yes: Regular Rate and Rhythm, S1, S2 Respiratory: Yes: Regular, CTA Bilaterally. No: Rales Gastrointestinal: Yes: Normal Bowel Sounds, Soft. No: Tenderness Edema: No Neurological: Yes: Alert, Oriented Labs: CBC, BMP 02/06/19 06:30 02/07/19 05:30 INR, PTT INR 1.08 (0.83-1.09) 02/04/19 13:30 Problem List - Problems (1) Altered mental status, unspecified Code(s): R41.82 - ALTERED MENTAL STATUS, UNSPECIFIED Qualifiers: Altered mental status type: unspecified Qualified Code(s): R41.82 - Altered mental status, unspecified (2) Seizure Code(s): R56.9 - UNSPECIFIED CONVULSIONS (3) Anxiety Code(s): F41.9 - ANXIETY DISORDER, UNSPECIFIED (4) Hyponatremia Code(s): E87.1 - HYPO-OSMOLALITY AND HYPONATREMIA Assessment/Plan Admitted to monitor bed Neuro, Ortho consults are appreciated Brain MRI report is pending. AM labs
[2019-02-07] MEDS: ATORVASTATIN CA 10 MG TABLET (FP) PO SCH (21:01)
[2019-02-07] MEDS: SODIUM CHLORIDE 1,000 ML IV SCH (22:30)
--- NOTE | 2019-02-07 23:30 | PN ---
Progress Note (short form) - Note Progress Note: 73 year old female with a history of HTN, HLD, Hypothyroid who presents for evaluation of AMS. The patient is accompanied by family who assist in providing the history. The patient's son reports that he left for the store and returned 1 hour later to find the patient extremely altered prompting her presentation to the ED for further evaluation. The patient's last known normal was 10am this morning and per the patient's son was in her usual state of health. The patient is oriented x1 on exam and ROS is unobtainable due to her altered mental status. As per her son she was at her baseline until 2 days ago when she could not operate her phone and has become progressively encephalopathic, this am had LOC with drooling and tonic contraction of arms, has decreased right shoulder ROM due to shoulder pain. Unable to relate hx coherently. FU : awake and conversive today difficulty in raising R arm no issues in leg appaers coherent MRI prelim (-) stroke, mild white matter changes, - Past Medical History Cardio/Vascular: Yes: HTN, Hyperlipdemia Psych: Yes: Anxiety Endocrine: Yes: Hypothyroidism - Alcohol/Substance Use Hx Alcohol Use: No - Smoking History Smoking history: Never smoked Have you smoked in the past 12 months: No - Social History Usual Living Arrangement: With Child ADL: Independent History of Recent Travel: No Home Medications - Allergies Allergies/Adverse Reactions: Allergies Allergy/AdvReac Type Severity Reaction Status Date / Time No Known Allergies Allergy Verified 02/04/19 12:56 - Home Medications Home Medications: Ambulatory Orders Clonazepam 1 mg PO DAILY 02/04/19 Escitalopram Oxalate [Lexapro -] 5 mg PO DAILY 02/04/19 Risperidone [Risperdal -] 0.5 mg PO DAILY 02/04/19 Physical Exam-Neuro Vital Signs: Vital Signs Temperature 98.6 F 02/07/19 20:54 Pulse Rate 71 02/07/19 20:54 Respiratory Rate 20 02/07/19 20:54 Blood Pressure 131/65 02/07/19 20:54 O2 Sat by Pulse Oximetry (%) 96 02/07/19 21:00 Labs: CBCD WBC 6.4 K/mm3 (4.0-10.0) 02/06/19 06:30 RBC 3.61 M/mm3 (3.60-5.2) 02/06/19 06:30 Hgb 11.1 GM/dL (10.7-15.3) 02/06/19 06:30 Hct 32.4 % (32.4-45.2) 02/06/19 06:30 MCV 89.6 fl (80-96) 02/06/19 06:30 MCHC 34.3 g/dl (32.0-36.0) 02/06/19 06:30 RDW 13.1 % (11.6-15.6) 02/06/19 06:30 Plt Count 159 K/MM3 (134-434) 02/06/19 06:30 MPV 9.1 fl (7.5-11.1) 02/06/19 06:30 CMP Sodium 139 mmol/L (136-145) 02/07/19 05:30 Potassium 3.6 mmol/L (3.5-5.1) 02/07/19 05:30 Chloride 107 mmol/L (98-107) 02/07/19 05:30 Carbon Dioxide 26 mmol/L (21-32) 02/07/19 05:30 Anion Gap 6 MMOL/L (8-16) L 02/07/19 05:30 BUN 15 mg/dL (7-18) 02/07/19 05:30 Creatinine 0.7 mg/dL (0.55-1.3) 02/07/19 05:30 Creat Clearance w eGFR 82.02 (>60) 02/07/19 05:30 Calcium 8.6 mg/dL (8.5-10.1) 02/07/19 05:30 Total Bilirubin 1.3 mg/dL (0.2-1) H 02/06/19 06:30 AST 22 U/L (15-37) 02/06/19 06:30 ALT 17 U/L (13-61) 02/06/19 06:30 Alkaline Phosphatase 59 U/L (45-117) 02/06/19 06:30 Total Protein 6.1 g/dl (6.4-8.2) L 02/06/19 06:30 Albumin 3.0 g/dl (3.4-5.0) L 02/06/19 06:30 - Neuro Exam Level Of Consciousness: Yes: Alert (not oriented to self/place only) Eyes: Yes: PERRL, Left Hemianopsis (to threat) Speech: Other (Pt. appears to have tangential thoughts) Mini Mental Exam: Impaired attention/concentration/memory+tangential thoughts, impaired concentration. Follows 1 step commands. Cranial Nerves II-XII Intact: No (slightly diminished left NLF) DTR's: 1+ Left Tricep, 1+ Right Tricep, 1+ Left Brachioradialis, 1+ Right Brachioradialis, 1+ Left Achilles, 1+ Right Achilles, 2+ Left Bicep, 2+ Right Bicep Babinski: Absent Response to light touch: Normal Response to pain prick: Normal Motor Strength: 5: Right Arm (ROM limited sec. to shoulder pain), /5: Left Arm, Left Leg, Right Leg Gait: Deferred Imaging - Results Cat Scan: Report Reviewed (CT head reported without acute changes) Assessment/Plan transient encephalopathic, --she may have overdosed on her meds(Klonopin/ Risperdal/Escitalopram) vs ? seziure, now close to baseline ? R rotator cuff injury MRI brain (-) prelim , FU official Klonopin 0.5mg bid OUTPT PSYCH FU and ORTHO FU please have her follow in office and we will set up outpt [address] CABRALES
[2019-02-08] MEDS: ACETAMINOPHEN 325 MG TABLET (FP) PO PRN ×2 (03:05→09:50)
[2019-02-08] MEDS: LEVOTHYROXINE NA 75 MCG TABLET (FP) PO SCH (06:16)
[2019-02-08 07:22] LABS: HEMATOCRIT 34.9 % (32.4-45.2); HEMOGLOBIN 11.6 GM/dL (10.7-15.3); MCH 29.5 pg (25.7-33.7); MCHC 33.1 g/dl (32.0-36.0); MEAN CELL VOLUME 89.2 fl (80-96); MEAN PLT VOLUME 9.2 fl (7.5-11.1); PLATELET COUNT 204 K/MM3 (134-434); RBC 3.92 M/mm3 (3.60-5.2); RDW 13.4 % (11.6-15.6); WHITE BLOOD COUNT 6.9 K/mm3 (4.0-10.0)
[2019-02-08 07:42] LABS: ALBUMIN 2.8 g/dl (3.4-5.0); ALK PHOS 59 U/L (45-117); ANION GAP 8 MMOL/L (8-16); BILIRUBIN,TOTAL 0.6 mg/dL (0.2-1); BLOOD UREA NITROGEN 17 mg/dL (7-18); CALCIUM 8.8 mg/dL (8.5-10.1); CHLORIDE 106 mmol/L (98-107); CO2 27 mmol/L (21-32); CREATININE 0.7 mg/dL (0.55-1.3); GLUCOSE,RANDOM 98 mg/dL (74-106); POTASSIUM 3.7 mmol/L (3.5-5.1); SGOT/AST 14 U/L (15-37); SGPT/ALT 20 U/L (13-61); SODIUM 140 mmol/L (136-145); TOT PROT 6.2 g/dl (6.4-8.2)
[2019-02-08] MEDS: clonazePAM 0.5 MG TABLET PO SCH ×2 (09:50→21:19)
[2019-02-08] MEDS: LOSARTAN POTASSIUM 25 MG TABLET PO SCH (09:50)
[2019-02-08] MEDS: SODIUM CHLORIDE 1,000 ML IV SCH (13:54)
--- NOTE | 2019-02-08 14:27 | PN ---
Progress Note, Physician History of Present Illness: Pt w/o fever, chills, SOB, CP, palpitations, abd pain, dysuria. - Current Medication List Current Medications: Active Medications Acetaminophen (Tylenol -) 650 mg PO Q6H PRN PRN Reason: PAIN LEVEL 1-5 OR FEVER Last Admin: 02/08/19 09:50 Dose: 650 mg Atorvastatin Calcium (Lipitor -) 10 mg PO HS [facility] Last Admin: 02/07/19 21:01 Dose: 10 mg Clonazepam (Klonopin -) 0.5 mg PO BID [facility] Last Admin: 02/08/19 09:50 Dose: 0.5 mg Fluphenazine HCl (Prolixin Injection -) 2 mg IM Q8H PRN PRN Reason: AGITATION Sodium Chloride (Normal Saline -) 1,000 mls @ 42 mls/hr IV ASDIR [facility] Last Admin: 02/08/19 13:54 Dose: Not Given Levothyroxine Sodium (Synthroid -) 75 mcg PO DAILY@0700 [facility] Last Admin: 02/08/19 06:16 Dose: 75 mcg Losartan Potassium (Cozaar -) 25 mg PO DAILY [facility] Last Admin: 02/08/19 09:50 Dose: 25 mg - Objective Vital Signs: Vital Signs Temperature 98.4 F 02/08/19 05:30 Pulse Rate 66 02/08/19 10:47 Respiratory Rate 18 02/08/19 10:47 Blood Pressure 120/66 02/08/19 10:47 O2 Sat by Pulse Oximetry (%) 96 02/08/19 07:20 Constitutional: Yes: No Distress, Calm Cardiovascular: Yes: Regular Rate and Rhythm, S1, S2 Respiratory: Yes: Regular, CTA Bilaterally. No: Rhonchi Gastrointestinal: Yes: Normal Bowel Sounds, Soft. No: Tenderness Edema: No Neurological: Yes: Alert, Oriented Labs: CBC, BMP 02/08/19 05:30 02/08/19 05:30 INR, PTT INR 1.08 (0.83-1.09) 02/04/19 13:30 Problem List - Problems (1) Altered mental status, unspecified Code(s): R41.82 - ALTERED MENTAL STATUS, UNSPECIFIED Qualifiers: Altered mental status type: unspecified Qualified Code(s): R41.82 - Altered mental status, unspecified (2) Seizure Code(s): R56.9 - UNSPECIFIED CONVULSIONS (3) Anxiety Code(s): F41.9 - ANXIETY DISORDER, UNSPECIFIED (4) Hyponatremia Code(s): E87.1 - HYPO-OSMOLALITY AND HYPONATREMIA Assessment/Plan Admitted to monitor bed Neuro, Ortho consults are appreciated Brain MRI report is pending. To f/u with Neuro AM labs
[2019-02-08] MEDS: ATORVASTATIN CA 10 MG TABLET (FP) PO SCH (21:19)
[2019-02-09] MEDS: ACETAMINOPHEN 325 MG TABLET (FP) PO PRN ×4 (00:15→21:00)
[2019-02-09] MEDS: LEVOTHYROXINE NA 75 MCG TABLET (FP) PO SCH (06:14)
[2019-02-09 07:59] LABS: ANION GAP 8 MMOL/L (8-16); BLOOD UREA NITROGEN 15 mg/dL (7-18); CALCIUM 9.2 mg/dL (8.5-10.1); CHLORIDE 106 mmol/L (98-107); CO2 26 mmol/L (21-32); CREATININE 0.8 mg/dL (0.55-1.3); GLUCOSE,RANDOM 115 mg/dL (74-106); POTASSIUM 3.9 mmol/L (3.5-5.1); SODIUM 141 mmol/L (136-145)
--- NOTE | 2019-02-09 09:30 | PN ---
Progress Note (short form) - Note Progress Note: 73 year old female with a history of HTN, HLD, Hypothyroid who presents for evaluation of AMS. The patient is accompanied by family who assist in providing the history. The patient's son reports that he left for the store and returned 1 hour later to find the patient extremely altered prompting her presentation to the ED for further evaluation. The patient's last known normal was 10am this morning and per the patient's son was in her usual state of health. The patient is oriented x1 on exam and ROS is unobtainable due to her altered mental status. As per her son she was at her baseline until 2 days ago when she could not operate her phone and has become progressively encephalopathic, this am had LOC with drooling and tonic contraction of arms, has decreased right shoulder ROM due to shoulder pain. Unable to relate hx coherently. 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 MRI (-) stroke, white matter changes - Past Medical History Cardio/Vascular: Yes: HTN, Hyperlipdemia Psych: Yes: Anxiety Endocrine: Yes: Hypothyroidism - Alcohol/Substance Use Hx Alcohol Use: No - Smoking History Smoking history: Never smoked Have you smoked in the past 12 months: No - Social History Usual Living Arrangement: With Child ADL: Independent History of Recent Travel: No Home Medications - Allergies Allergies/Adverse Reactions: Allergies Allergy/AdvReac Type Severity Reaction Status Date / Time No Known Allergies Allergy Verified 02/04/19 12:56 - Home Medications Home Medications: Ambulatory Orders Clonazepam 1 mg PO DAILY 02/04/19 Escitalopram Oxalate [Lexapro -] 5 mg PO DAILY 02/04/19 Risperidone [Risperdal -] 0.5 mg PO DAILY 02/04/19 Physical Exam-Neuro Vital Signs: Vital Signs Temperature 98.2 F 02/09/19 06:00 Pulse Rate 76 02/09/19 06:00 Respiratory Rate 20 02/09/19 06:00 Blood Pressure 150/86 02/09/19 06:00 O2 Sat by Pulse Oximetry (%) 97 02/08/19 21:00 Labs: CBCD WBC 6.4 K/mm3 (4.0-10.0) 02/06/19 06:30 RBC 3.61 M/mm3 (3.60-5.2) 02/06/19 06:30 Hgb 11.1 GM/dL (10.7-15.3) 02/06/19 06:30 Hct 32.4 % (32.4-45.2) 02/06/19 06:30 MCV 89.6 fl (80-96) 02/06/19 06:30 MCHC 34.3 g/dl (32.0-36.0) 02/06/19 06:30 RDW 13.1 % (11.6-15.6) 02/06/19 06:30 Plt Count 159 K/MM3 (134-434) 02/06/19 06:30 MPV 9.1 fl (7.5-11.1) 02/06/19 06:30 CMP Sodium 139 mmol/L (136-145) 02/07/19 05:30 Potassium 3.6 mmol/L (3.5-5.1) 02/07/19 05:30 Chloride 107 mmol/L (98-107) 02/07/19 05:30 Carbon Dioxide 26 mmol/L (21-32) 02/07/19 05:30 Anion Gap 6 MMOL/L (8-16) L 02/07/19 05:30 BUN 15 mg/dL (7-18) 02/07/19 05:30 Creatinine 0.7 mg/dL (0.55-1.3) 02/07/19 05:30 Creat Clearance w eGFR 82.02 (>60) 02/07/19 05:30 Calcium 8.6 mg/dL (8.5-10.1) 02/07/19 05:30 Total Bilirubin 1.3 mg/dL (0.2-1) H 02/06/19 06:30 AST 22 U/L (15-37) 02/06/19 06:30 ALT 17 U/L (13-61) 02/06/19 06:30 Alkaline Phosphatase 59 U/L (45-117) 02/06/19 06:30 Total Protein 6.1 g/dl (6.4-8.2) L 02/06/19 06:30 Albumin 3.0 g/dl (3.4-5.0) L 02/06/19 06:30 - Neuro Exam Level Of Consciousness: Yes: Alert (not oriented to self/place only) Eyes: Yes: PERRL, Left Hemianopsis (to threat) Speech: Other (Pt. appears to have tangential thoughts) Mini Mental Exam: Impaired attention/concentration/memory+tangential thoughts, impaired concentration. Follows 1 step commands. Cranial Nerves II-XII Intact: No (slightly diminished left NLF) DTR's: 1+ Left Tricep, 1+ Right Tricep, 1+ Left Brachioradialis, 1+ Right Brachioradialis, 1+ Left Achilles, 1+ Right Achilles, 2+ Left Bicep, 2+ Right Bicep Babinski: Absent Response to light touch: Normal Response to pain prick: Normal Motor Strength: 3/5: Right Arm (ROM limited sec. to shoulder pain), 5/5: Left Arm, Left Leg, Right Leg Gait: Deferred Imaging - Results Cat Scan: Report Reviewed (CT head reported without acute changes) Assessment/Plan transient encephalopathic, --she may have overdosed on her meds(Klonopin/ Risperdal/Escitalopram) vs ? seziure, now close to baseline ? R rotator cuff injury ; she likely has underlying Schizophrenia-thiough she appears functional MRI brain (-) acute stroke Klonopin --> change to outpt dose 1mg PoBID , would DR NOEMY Potter Outpt psych OUTPT PSYCH FU and ORTHO FU --? if she requires MRI R shoulder please have her follow in office and we will set up outpt [address] CABRALES
--- NOTE | 2019-02-09 10:02 | PN ---
Progress Note, Physician History of Present Illness: Pt w/o fever, chills, SOB, CP, palpitations, abd pain, dysuria. - Current Medication List Current Medications: Active Medications Acetaminophen (Tylenol -) 650 mg PO Q6H PRN PRN Reason: PAIN LEVEL 1-5 OR FEVER Last Admin: 02/09/19 05:00 Dose: 650 mg Atorvastatin Calcium (Lipitor -) 10 mg PO HS [facility] Last Admin: 02/08/19 21:19 Dose: 10 mg Clonazepam (Klonopin -) 0.5 mg PO BID [facility] Last Admin: 02/08/19 21:19 Dose: 0.5 mg Fluphenazine HCl (Prolixin Injection -) 2 mg IM Q8H PRN PRN Reason: AGITATION Sodium Chloride (Normal Saline -) 1,000 mls @ 42 mls/hr IV ASDIR [facility] Last Admin: 02/08/19 13:54 Dose: Not Given Levothyroxine Sodium (Synthroid -) 75 mcg PO DAILY@0700 [facility] Last Admin: 02/09/19 06:14 Dose: 75 mcg Losartan Potassium (Cozaar -) 25 mg PO DAILY [facility] Last Admin: 02/08/19 09:50 Dose: 25 mg - Objective Vital Signs: Vital Signs Temperature 98.2 F 02/09/19 06:00 Pulse Rate 76 02/09/19 06:00 Respiratory Rate 20 02/09/19 06:00 Blood Pressure 150/86 02/09/19 06:00 O2 Sat by Pulse Oximetry (%) 97 02/08/19 21:00 Constitutional: Yes: No Distress, Calm Cardiovascular: Yes: Regular Rate and Rhythm, S1, S2 Respiratory: Yes: Regular, CTA Bilaterally. No: Rales Gastrointestinal: Yes: Normal Bowel Sounds, Soft. No: Tenderness Edema: No Neurological: Yes: Alert, Oriented Labs: CBC, BMP 02/08/19 05:30 02/09/19 06:50 INR, PTT INR 1.08 (0.83-1.09) 02/04/19 13:30 Problem List - Problems (1) Altered mental status, unspecified Code(s): R41.82 - ALTERED MENTAL STATUS, UNSPECIFIED Qualifiers: Altered mental status type: unspecified Qualified Code(s): R41.82 - Altered mental status, unspecified (2) Seizure Code(s): R56.9 - UNSPECIFIED CONVULSIONS (3) Anxiety Code(s): F41.9 - ANXIETY DISORDER, UNSPECIFIED (4) Hyponatremia Code(s): E87.1 - HYPO-OSMOLALITY AND HYPONATREMIA Assessment/Plan Admitted to monitor bed; pt came with AMS ( possible medication overdose, seisures) Neuro, Ortho consults are appreciated Brain MRI report was reviewed Pt's condition was reviewed with Dr. Grant. Pt's nurse, from yesterday morning shift ([facility]), reported pt hearing police, gun shots and helicopter flying by. Physchiatry consult for competency (in a patient that liveds alone. Pt's condition was d/w her nurse and CM
[2019-02-09] MEDS: clonazePAM 0.5 MG TABLET PO SCH ×2 (10:05→19:20)
[2019-02-09] MEDS: LOSARTAN POTASSIUM 25 MG TABLET PO SCH (10:05)
[2019-02-09] MEDS ORDERED: clonazePAM 0.5 MG TABLET PO SCH (12:00)
[2019-02-09] MEDS: ATORVASTATIN CA 10 MG TABLET (FP) PO SCH (21:25)
[2019-02-10] MEDS: ACETAMINOPHEN 325 MG TABLET (FP) PO PRN ×2 (02:21→15:07)
[2019-02-10] MEDS: LEVOTHYROXINE NA 75 MCG TABLET (FP) PO SCH (07:00)
--- NOTE | 2019-02-10 09:36 | PN ---
Progress Note (short form) - Note Progress Note: Pt seen and examined, she is doing better, less right shoulder pain, slightly improved ROM. She thinks she had an MRI of her shoulder, I checked, she did not , I told her that, she had an MRI of her brain. Right shoulder looks ok, nothing urgent. + pain with ROM, decreased ROM Rec Can dc from an ortho pov ROM exercises, either on her own or with a physical therapist Can f/u with us an an out pt
--- NOTE | 2019-02-10 09:58 | PN ---
Progress Note, Physician History of Present Illness: Pt w/o fever, chills, SOB, CP, palpitations, abd pain, dysuria. Pt w/o confusion. - Current Medication List Current Medications: Active Medications Acetaminophen (Tylenol -) 650 mg PO Q6H PRN PRN Reason: PAIN LEVEL 1-5 OR FEVER Last Admin: 02/10/19 02:21 Dose: 650 mg Atorvastatin Calcium (Lipitor -) 10 mg PO HS [facility] Last Admin: 02/09/19 21:25 Dose: 10 mg Clonazepam (Klonopin -) 1 mg PO BID [facility] Last Admin: 02/09/19 19:20 Dose: 1 mg Fluphenazine HCl (Prolixin Injection -) 2 mg IM Q8H PRN PRN Reason: AGITATION Sodium Chloride (Normal Saline -) 1,000 mls @ 42 mls/hr IV ASD[facility] Last Admin: 02/08/19 13:54 Dose: Not Given Levothyroxine Sodium (Synthroid -) 75 mcg PO DAILY@0700 [facility] Last Admin: 02/10/19 07:00 Dose: 75 mcg Losartan Potassium (Cozaar -) 25 mg PO DAILY [facility] Last Admin: 02/09/19 10:05 Dose: 25 mg - Objective Vital Signs: Vital Signs Temperature 98.3 F 02/10/19 06:00 Pulse Rate 78 02/10/19 06:00 Respiratory Rate 20 02/10/19 06:00 Blood Pressure 146/82 02/10/19 06:00 O2 Sat by Pulse Oximetry (%) 97 02/09/19 21:00 Constitutional: Yes: No Distress, Calm Cardiovascular: Yes: Regular Rate and Rhythm, S1, S2 Respiratory: Yes: Regular, CTA Bilaterally Gastrointestinal: Yes: Normal Bowel Sounds, Soft. No: Tenderness Edema: No Neurological: Yes: Alert Labs: CBC, BMP 02/08/19 05:30 02/09/19 06:50 INR, PTT INR 1.08 (0.83-1.09) 02/04/19 13:30 Problem List - Problems (1) Altered mental status, unspecified Code(s): R41.82 - ALTERED MENTAL STATUS, UNSPECIFIED Qualifiers: Altered mental status type: unspecified Qualified Code(s): R41.82 - Altered mental status, unspecified (2) Seizure Code(s): R56.9 - UNSPECIFIED CONVULSIONS (3) Anxiety Code(s): F41.9 - ANXIETY DISORDER, UNSPECIFIED (4) Hyponatremia Code(s): E87.1 - HYPO-OSMOLALITY AND HYPONATREMIA Assessment/Plan Admitted to monitor bed; pt came with AMS ( possible medication overdose, seisures) Neuro, Ortho consults are appreciated Brain MRI report was reviewed. No hallucinations reported by nursing staff. Physchiatry consult for competency (in a patient that lives alone). Dr. Robertson to see pt now; if cleared to DC pt home. Pt's condition was d/w her nurse and CM.
--- NOTE | 2019-02-10 10:17 | CON.PSY ---
Psychiatry Consult Chief Complaint: Patient seen and case discussed with . Patient with a history of Anxiety after the of her HB. She did well on KlonaPION 1MG PO TID FOR ANXIRTY BUT THAT WAS CHANGED AND rEISPERIDAL AND ceLEXA WERE ADDED TO THE REGIMEN BY HER pSYCH. Patie admitted with?seizures and hallucinations. patient appears better and cognitively intact and able to engage in conversation. Symptoms: reports: Anxiety - Previous Psychiatric Treatment Outpatient: Less than 6 mos ago Inpatient: None - Previous Substance Abuse Treatment Outpatient: None Inpatient: None - Reason for Previous Treatment Reason for Previous Treatment: Anxiety or Panic Disorder - Current Medications Current Medications: Active Medications Acetaminophen (Tylenol -) 650 mg PO Q6H PRN PRN Reason: PAIN LEVEL 1-5 OR FEVER Last Admin: 02/10/19 02:21 Dose: 650 mg Atorvastatin Calcium (Lipitor -) 10 mg PO HS [facility] Last Admin: 02/09/19 21:25 Dose: 10 mg Clonazepam (Klonopin -) 1 mg PO BID [facility] Last Admin: 02/09/19 19:20 Dose: 1 mg Fluphenazine HCl (Prolixin Injection -) 2 mg IM Q8H PRN PRN Reason: AGITATION Sodium Chloride (Normal Saline -) 1,000 mls @ 42 mls/hr IV ASDIR [facility] Last Admin: 02/08/19 13:54 Dose: Not Given Levothyroxine Sodium (Synthroid -) 75 mcg PO DAILY@0700 [facility] Last Admin: 02/10/19 07:00 Dose: 75 mcg Losartan Potassium (Cozaar -) 25 mg PO DAILY [facility] Last Admin: 02/09/19 10:05 Dose: 25 mg - Allergies Allergies: Allergies Allergy/AdvReac Type Severity Reaction Status Date / Time No Known Allergies Allergy Verified 02/04/19 12:56 - Current Living Status Usual Living Arrangement: With Child - Current Mental Status Evaluation Appearance: Well Groomed Attitude: Cooperative - Affect Affect: Full Range Appropriateness: Appropriate to Content - Mood Mood: Anxious - Speech/Language Expressive: Coherent - Psychomotor Activity Psychomotor Activity: Normal - Thought Process Thought Process: Intact - Thought Content Hallucinations: Absent Delusions: Absent - Self Perception Self Perception: No Impairment - Cognition Attention: Alert Orientation: Time Memory, Immediate Recall: Intact Memory, Short Term: 3/3 Memory, Remote with Promptin/3 - Concentration Serial Sevens Intact: No Simple Calculations Intact: Yes - Abstraction Proverb Interpretation: Intact Judgement: Intact - Insight Insight: Intact - Impulse Control Impulse Control: Good Control - Suicidal Ideation Suicidal Ideation: No - Homicidal Ideation Homicidal Ideation: No Assessment/Plan 1) Agree with Klonapin 1mg po bid. 2) No need for an anti Psychotic or an antidepressant at this time.
[2019-02-10] MEDS: clonazePAM 0.5 MG TABLET PO SCH (11:24)
[2019-02-10] MEDS: LOSARTAN POTASSIUM 25 MG TABLET PO SCH (11:24)
--- NOTE | 2019-02-10 11:59 | DS ---
Physical Examination Vital Signs: Vital Signs Temperature 98.7 F 02/10/19 09:00 Pulse Rate 80 02/10/19 09:00 Respiratory Rate 20 02/10/19 09:00 Blood Pressure 142/74 02/10/19 09:00 O2 Sat by Pulse Oximetry (%) 97 02/10/19 09:00 Findings/Remarks: See today Progress Note for HPI, ROS, PE Labs: CBC, BMP 02/08/19 05:30 02/09/19 06:50 Discharge Summary Reason For Visit: TRANSIENT ISCHEMIC ATTACH/ALTERED MENTAL STATUS Current Active Problems Altered mental status, unspecified (Acute) Hyponatremia (Acute) Seizure (Acute) TIA (transient ischemic attack) (Acute) Procedures: Principal: Brain MRI. Head CT scan. CXR. Right Shoulder XR Hospital Course: Pt was brought by ambulance to ER after pt was found unresponsive by her son ( he returned from shopping). In ER pt was confused but improved, over few days, to her baseline. She was seen by Neuro (Dr. Figueroa/ [place]); she had brain MRI ( no acute event). Pt was seen by Psychiatry (Dr. Robertson) and cleared for DC home with Clonazepam. Pt with right shoulder pain, was seen by Ortho (Dr. Falcon). Pt to be DC'ed home with outpatient f/u (with Neuro, Ortho, Phychiatry -pt wants to change to a new specialist). Condition: Stable - Instructions Diet, Activity, Other Instructions: Resume DIet Referrals: Keegan Smart MD [Staff Physician] - (next week; call for appointment) Clara Figueroa MD [Staff Physician] - (next week; call for appointment) Dario Falcon MD [Staff Physician] - (1 to 2 weeks; call for appointment) Disposition: HOME - Home Medications Comprehensive Discharge Medication List: Ambulatory Orders SEE Patient Discharge Instructions
[2019-02-10] MEDS: SODIUM CHLORIDE 1,000 ML IV SCH (12:37)
[2019-02-10 15:51] VITALS: BP 119/65; PULSE 79; TEMP 98.2
== END 2019-02-10 17:54 | disposition home or self-care (01) | DRG 101 ==
LOC: JER 12:34 → JERBED 15:03 → OBSVTOIN 17:15 → J4W 02-05 13:53
PROVIDERS: ADMIT Specialist; ATTEND Specialist
DX: R56.9 Unspecified convulsions (principal); R44.3 Hallucinations, unspecified; I10 Essential (primary) hypertension; E78.5 Hyperlipidemia, unspecified; E03.9 Hypothyroidism, unspecified; F41.9 Anxiety disorder, unspecified; T42.4X1A Poisoning by benzodiazepines, accidental (unintentional), initial encounter; R41.82 Altered mental status, unspecified; Y92.098 Other place in other non-institutional residence as the place of occurrence of the external cause; M25.511 Pain in right shoulder
CPT/HCPCS: 36415; 70450-TC; 70551-TC; 71045-TC-FY; 71046-TC-FY; 73030-TC-RT-FY; 73060-TC-RT-FY; 80048; 80053; 81003; 82465; 82550; 82553; 83718; 83721; 84439; 84443; 84478; 84484; 85025; 85027; 85610; 86850; 86900; 86901; 87040; 87086; 93005; 93010; 95816; 97116-GP; 97162-GP; 99285-25; G0378; J7030

== ENCOUNTER 2019-03-23 12:27 | Emergency (ER) | payer OTHER, MEDICARE | END 2019-03-23 14:00 | disposition home or self-care (01) | LOC: JERFT 12:27 ==

== ENCOUNTER 2019-03-27 13:17 | Emergency (ER) | payer OTHER, MEDICARE ==
[2019-03-27 13:56] VITALS: BMI 30.2
--- NOTE | 2019-03-27 14:37 | PDOC ---
History of Present Illness - General Chief Complaint: Lightheaded Stated Complaint: DIZZINESS Time Seen by Provider: 03/27/19 13:43 - History of Present Illness Initial Comments: 03/27/19 14:31 The patient is a 73 year old female with no reported significant PMH who presents to the ED c/o lightheadedness. Patient states she was ambulating around her home this morning when she felt lightheaded and had difficulty with her balance. Patient sat down and states her symptoms resolved within an hour. No associated chest pain, palpitations, shortness of breath. No previous similar episodes of lightheadedness. Patient also c/o 3-4 day h/o decreased urine output, patient states she is As per EMR, patient evaluated for decreased urine output three days previous. States she did not take antibiotic as prescribed first because her PMD (Dr. Smart) told her not to take the anitbiotic and later because she recieves her prescription medications by mail and the medication did not arrive. Patient states she lives with her son, and is able to complete her ADL's without assistance. Denies any weight loss or changes in appetite. NKDA PMD: Dr. Smart As per EMR, patient evaluated on 03/23/19 for 3 day history decreased urine output. UA showed 3+ blood, trace leukocyte esterase. Patient discharged on 7 day course of Bactrim for symptomatic UTI. Patient's SiSx attributed to decreased PO intake. Past History - Past Medical History Allergies/Adverse Reactions: Allergies Allergy/AdvReac Type Severity Reaction Status Date / Time No Known Allergies Allergy Verified 03/27/19 13:56 Home Medications: Ambulatory Orders Levothyroxine [Synthroid -] 75 mg DAILY 02/05/19 Acetaminophen [Tylenol .Regular Strength -] 650 mg PO Q6H PRN tablet 02/10/19 Atorvastatin Ca [Lipitor] 10 mg PO HS tablet 02/10/19 Losartan Potassium [Cozaar -] 25 mg PO DAILY tablet 02/10/19 Nitrofurantoin Monohyd/M-Cryst [Macrobid -] 100 mg PO BID #14 capsule 03/23/19 clonazePAM [Klonopin -] 1 mg PO BID PRN MDD 2 03/23/19 Anemia: No Asthma: No Cancer: No Cardiac Disorders: No CVA: No COPD: No CHF: No Dementia: No Diabetes: No GI Disorders: No Disorders: No HTN: Yes Hypercholesterolemia: Yes Liver Disease: No Seizures: No Thyroid Disease: Yes - Surgical History Abdominal Surgery: No Appendectomy: No Cardiac Surgery: No Cholecystectomy: No Lung Surgery: No Neurologic Surgery: No Orthopedic Surgery: No - Immunization History Immunization Up to Date: Yes - Suicide/Smoking/Psychosocial Hx Smoking History: Unknown if ever smoked Have you smoked in the past 12 months: No Information on smoking cessation initiated: No Hx Alcohol Use: No Drug/Substance Use Hx: No Substance Use Type: None Hx Substance Use Treatment: No Review of Systems - Review of Systems Constitutional: Yes: Chills. No: Fever Respiratory: No: Shortness of Breath Cardiac (ROS): No: Chest Pain, Lightheadedness, Palpitations ABD/GI: Yes: Poor Fluid Intake. No: Constipated, Diarrhea *Physical Exam - Vital Signs Last Vital Signs Temp Pulse Resp BP Pulse Ox 98.2 F 78 16 144/73 100 03/27/19 13:20 03/27/19 13:20 03/27/19 13:20 03/27/19 13:20 03/27/19 13:20 - Physical Exam General Appearance: Yes: Nourished, Appropriately Dressed HEENT: positive: Normal Voice, Hearing Grossly Normal Neck: positive: Trachea midline, Supple Respiratory/Chest: positive: Lungs Clear, Normal Breath Sounds Cardiovascular: positive: S1, S2. 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 Evaluated in our ED for decreased urine output in our ED, with weakly positive UA, did not adhere to antibiotic regimen. VS unremarkable Non-distended on PE, no CVAT B/L Frontal diagnosis for decreased urine output: dehydration, cystitis, pyelopnephritis; low clinical suspicion for renal failure/renal artery obstruction as patient well appearing, benign clinical exam finding Frontal diagnosis for lightheadedness: r/o ACS, arrythmia, valvular abnormalities, orthostatic hypotension Will obtain Troponin, EKG, CXR, CBC/CMP, UA/UCx. Cardiac Monitoring. Reassess EKG shows no acute ischemic change as documented in EKG section of EMR 03/27/19 17:12 CBC, CMP unremarkable Troponin (-) S/p IV hydration No repeat episodes of lightheadedness, patient ambulatory around unit - ? SiSx 2/2 to dehydration UA pending 03/27/19 18:34 Lab contacted, states they are having difficulties with UA reading instrument 03/27/19 18:56 UA shows 1+ Leukocyte Esterase (trace LE on 03/23), 2+ blood, 62 bacteria Will counseling director patient to take Bactrim as previously prescribed and follow-up with Dr. Smart. 03/27/19 19:01 Patient counseled @ bedside, states she has Bactrim at home. Emphasized importance of taking full antibiotic course as well as PMD follow-up. Will discharge home with return precautions. Clinical Impression: UTI, Dehydration *DC/Admit/Observation/Transfer Diagnosis at time of Disposition: UTI (urinary tract infection) - Discharge Dispostion Disposition: HOME Condition at time of disposition: Good Decision to Admit order: No - Referrals Referrals: Christi Smart [Primary Care Provider] - - Patient Instructions Printed Discharge Instructions: Urinary Tract Infection Additional Instructions: Please take the antibiotic that was prescribed to you and complete the entire antibiotic course You must follow-up with Dr. Smart in the next 3 days. Your care is not complete until you are evaluated by Dr. Smart. Drink plenty of water and take all your medications as directed. Return to the Emergency Department for any new/worsening/concerning symptoms. - Post Discharge Activity
[2019-03-27 14:53] LABS: BASO % 0.5 % (0-2.0); HEMOGLOBIN 14.2 GM/dL (10.7-15.3); MCH 29.4 pg (25.7-33.7); MCHC 33.2 g/dl (32.0-36.0); MEAN CELL VOLUME 88.5 fl (80-96); MEAN PLT VOLUME 8.9 fl (7.5-11.1); MONO % 6.8 % (3.8-10.2); NEUT % 59.7 % (42.8-82.8); PLATELET COUNT 246 K/MM3 (134-434); RBC 4.85 M/mm3 (3.60-5.2); RDW 14.6 % (11.6-15.6); WHITE BLOOD COUNT 5.3 K/mm3 (4.0-10.0)
[2019-03-27 15:12] LABS: ALK PHOS 108 U/L (45-117); ANION GAP 10 MMOL/L (8-16); BILIRUBIN,TOTAL 0.8 mg/dL (0.2-1); BLOOD UREA NITROGEN 15.3 mg/dL (7-18); CALCIUM 9.9 mg/dL (8.5-10.1); CHLORIDE 102 mmol/L (98-107); CO2 26 mmol/L (21-32); CREATININE 0.9 mg/dL (0.55-1.3); GLUCOSE,RANDOM 109 mg/dL (74-106); POTASSIUM 3.6 mmol/L (3.5-5.1); SGOT/AST 24 U/L (15-37); SGPT/ALT 22 U/L (13-61); SODIUM 137 mmol/L (136-145); TOT PROT 8.5 g/dl (6.4-8.2)
--- NOTE | 2019-03-27 15:28 | PDOC ---
Documentation entered by Sona Santoro SCRIBE, acting as scribe for Rayne Wallace MD. Rayne Wallace MD: This documentation has been prepared by the Maude lau Mackenzie, SCRIBE, under my direction and personally reviewed by me in its entirety. I confirm that the documentation accurately reflects all work , treatment, procedures, and medical decision making performed by me. Attending Attestation - Resident Resident Name: Delaney Garay - ED Attending Attestation I have performed the following: I have examined & evaluated the patient, The case was reviewed & discussed with the resident, I agree w/resident's findings & plan - HPI HPI: The patient is a 73 year old female, with a significant PMH of HTN and hypothyroidism who presents to the emergency department with decreased urine output accompanied by lightheadedness. The patient denies chest pain, shortness of breath, headache. Denies fever, chills, nausea, vomiting, diarrhea and constipation. Allergies: NKDA Past surgical history: None reported Social history: None reported PCP: Dr. Smart 03/27/19 14:55 - Physicial Exam PE: GENERAL: Awake, alert, and fully oriented, in no acute distress HEAD: No signs of trauma EYES: PERRLA, EOMI, sclera anicteric, conjunctiva clear ENT: Auricles normal inspection, hearing grossly normal, nares patent, oropharynx clear without exudates. Moist mucosa NECK: Normal ROM, supple, no lymphadenopathy, JVD, or masses LUNGS: Breath sounds equal, clear to auscultation bilaterally. No wheezes, and no crackles HEART: Regular rate and rhythm, normal S1 and S2, no murmurs, rubs or gallops ABDOMEN: Soft, nontender, normoactive bowel sounds. No guarding, no rebound. No masses EXTREMITIES: Normal range of motion, no edema. No clubbing or cyanosis. No cords, erythema, or tenderness NEUROLOGICAL: Cranial nerves II through XII grossly intact. Normal speech, normal gait SKIN: Warm, Dry, normal turgor, no rashes or lesions noted. 03/27/19 14:56 - Medical Decision Making 03/27/19 15:19 Pt presents to the ED complaining of decreased urine output for one week and lightheadness. Denies abdominal pain or urge to urinate. Recent work up for decreased urine output 4 days ago was negative except for slight UTI. Well appearing in the ED. Differential includes dehydration, less likely pyelonephritis, less likely renal failure, less likely ACS. EKG shows no arryhymia or ischemia. Will check labs and give IV hydration and reassess.
[2019-03-27] MEDS ORDERED: SODIUM CHLORIDE 0.9% 500 ML INFUS.BAG IV ONE (15:41)
[2019-03-27 18:51] LABS: EPI CELLS 4.9 /HPF (0-5/HPF); HYALINE CASTS 5 /lpf (0-8); URINE APPEARANCE CLEAR; URINE BILIRUBIN NEGATIVE (NEGATIVE); URINE COLOR YELLOW; URINE GLUCOSE (UA) NEGATIVE (NEGATIVE); URINE KETONE NEGATIVE (NEGATIVE); URINE LEUK ESTERASE 1+ (NEGATIVE); URINE NITRITE NEGATIVE (NEGATIVE); URINE PROTEIN NEGATIVE (NEGATIVE); URINE RBC 7 /hpf (0-4); URINE WBC 9 /hpf (0-5)
[2019-03-27 19:37] VITALS: BP 135/65; PULSE 74; TEMP 98.4
--- NOTE | 2019-03-27 22:07 | PDOC ---
*Physical Exam - Vital Signs Last Vital Signs Temp Pulse Resp BP Pulse Ox 98.4 F 74 16 135/65 98 03/27/19 19:30 03/27/19 19:30 03/27/19 19:30 03/27/19 19:30 03/27/19 19:30 ED Treatment Course - LABORATORY CBC & Chemistry Diagram: 03/27/19 14:30 03/27/19 14:30 - ADDITIONAL ORDERS Additional order review: Laboratory Results 03/27/19 03/27/19 18:15 14:30 Sodium 137 Potassium 3.6 Chloride 102 Carbon Dioxide 26 Anion Gap 10 BUN 15.3 Creatinine 0.9 Est GFR (CKD-EPI)AfAm 73.52 Est GFR (CKD-EPI)NonAf 63.43 Random Glucose 109 H Calcium 9.9 Total Bilirubin 0.8 AST 24 ALT 22 Alkaline Phosphatase 108 Creatine Kinase 143 Troponin I < 0.02 Total Protein 8.5 H Albumin 4.0 Urine Color Yellow Urine Appearance Clear Urine pH 5.0 Ur Specific [place] 1.022 Urine Protein Negative Urine Glucose (UA) Negative Urine Ketones Negative Urine Blood 2+ H Urine Nitrite Negative Urine Bilirubin Negative Urine Urobilinogen 1.0 Ur Leukocyte Esterase 1+ H Urine WBC (Auto) 9 Urine RBC (Auto) 7 Urine Casts (Auto) 5 U Epithel Cells (Auto) 4.9 Urine Bacteria (Auto) 62.0 03/27/19 14:30 RBC 4.85 MCV 88.5 MCHC 33.2 RDW 14.6 MPV 8.9 Neutrophils % 59.7 D Lymphocytes % 33.0 D Monocytes % 6.8 Eosinophils % 0.0 Basophils % 0.5 - Medications Given in the ED: ED Medications Discontinued Medications Generic Name Dose Route Start Last Admin Trade Name Freq PRN Reason Stop Dose Admin Sodium Chloride 1,000 ml 03/27/19 15:41 03/27/19 15:59 Normal Saline - IV 03/27/19 15:42 1,000 ml ONCE ONE Administration Medical Decision Making - Medical Decision Making 03/27/19 22:02 This 73 yo female was seen and evaluated by Dr Garay and Dr Cedeno and found to have a UTI The pt has states that her would come and take her home. HOWEVER at this time ,it was found that she a and she lives with her son We tried multiple times to contact the son but his phone goes to voice mail. I then called her PCP Dr Keegan Smart and he said that we should ED OBS her for safety and try to contact the son in the morning, contact psych in the am to evaluate her and call Yvon Smart if the pt still insists her is alive(he has been for many years) 03/27/19 23:04 The son called and said he would come and pickling solution maker his mother 03/27/19 23:34 The son came and I spoke with both of them. He saked to hav eher antibiotics sent to [facility] on [address]. I told the son that I has spoken to Dr Smart and Dr Smart wants to see this pt in his office for follow up. The son agreed with the plan Ths pt left with the son *DC/Admit/Observation/Transfer Diagnosis at time of Disposition: UTI (urinary tract infection) - Discharge Dispostion Disposition: HOME Condition at time of disposition: Good - Prescriptions Prescriptions: Nitrofurantoin Macrocrystal [Macrodantin -] 50 mg PO QID #20 capsule - Referrals Referrals: Christi Smart [Primary Care Provider] - - Patient Instructions Printed Discharge Instructions: Urinary Tract Infection Additional Instructions: Please take the antibiotic that was prescribed to you and complete the entire antibiotic course You must follow-up with Dr. Smart in the next 3 days. Your care is not complete until you are evaluated by Dr. Smart. Drink plenty of water and take all your medications as directed. Return to the Emergency Department for any new/worsening/concerning symptoms. - Post Discharge Activity
[2019-03-27] MEDS ORDERED: clonazePAM 0.5 MG TABLET PO ONE (22:27)
[2019-03-27] MEDS ORDERED: NITROFURANTOIN MACROCRYSTAL 50 MG CAPSULE (FP) PO SCH (22:30)
[2019-03-27] MEDS ORDERED: NITROFURANTOIN MACROCRYSTAL 50 MG CAPSULE (FP) ONE (22:37)
[2019-03-27] MEDS ORDERED: clonazePAM 0.5 MG TABLET ONE (22:37)
--- NOTE | 2019-03-28 10:09 | EKG ---
Test Reason : Blood Pressure : / mmHG Vent. Rate : 074 BPM Atrial Rate : 074 BPM P-R Int : 106 ms QRS Dur : 076 ms QT Int : 388 ms P-R-T Axes : 040 024 053 degrees QTc Int : 430 ms SINUS RHYTHM WITH SHORT IA OTHERWISE NORMAL ECG WHEN COMPARED WITH ECG OF 04-FEB-2019 13:29, NO SIGNIFICANT CHANGE WAS FOUND Confirmed by NENO FELIZ MD ([id number]) on 03/28/2019 10:09:30 AM Referred By: Confirmed By:NENO FELIZ MD
== END 2019-03-28 | disposition home or self-care (01) ==
LOC: JER 13:17
PROC: 3E0337Z Introduction of Electrolytic and Water Balance Substance into Peripheral Vein, Percutaneous Approach (ICD-10-PCS; principal; 2019-03-27)
DX: N39.0 Urinary tract infection, site not specified (principal); Z87.440 Personal history of urinary (tract) infections; I10 Essential (primary) hypertension; E78.5 Hyperlipidemia, unspecified; E03.9 Hypothyroidism, unspecified
CPT/HCPCS: 36415; 71045-TC-FY; 80053; 81003; 82550; 84484; 85025; 87086; 93005; 93010; 99283-25

== ENCOUNTER 2019-03-29 09:13 | Inpatient (IN) | payer OTHER, MEDICARE | END 2019-04-06 21:24 | LOC: JER 09:13 → JERBED 14:48 → J5S 21:15 ==